=== PATIENT | female | born 1950 | race Caucasian/White ===

== ENCOUNTER 2018-03-16 18:22 | Inpatient (IN) | payer MEDICAID, MEDICARE ==
[~2018-03-16] VITALS: Ht 160 cm; Wt 83.7 kg
[2018-03-16 20:10] VITALS: BP 144/68
--- NOTE | 2018-03-16 20:10 | NUR ---
JOSEPH GABRIEL admitted to room 417-1, with an admitting diagnosis of PANCREATITIS, on 03/16/18 from [place] via , accompanied by STAFF.JOSEPH GABRIEL introduced to surroundings, call light, bed controls, phone, TV, temperature control, lights, meal times, smoking policy, visitor policy, side rail policy, bathrooms and showers. Patient Rights given to patient in the handbook. JOSEPH GABRIEL verbalizes understanding that [facility] is not responsible for the loss or damage to any personal effects or valuables that are kept in the patients posession during their hospitalization. PLANS OF CARE DISCUSSED WITH THE PT AND PT VERBALIZES UNDERSTANDING. JOSEPH GABRIEL verbalizes understanding of Interdisciplinary Patient Education. Patient and/or family were informed about the Rapid Response Team and its purpose.
--- OUTSIDE RECORDS SUMMARY | 2018-03-16 20:18 | XMS REPORT ---
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
--- OUTSIDE RECORDS SUMMARY | 2018-03-16 20:18 | XMS REPORT ---
Author Author FELIBERTO VEGA Organization eClinicalWorks Address Unknown Phone Unavailable Care Team Providers Care Customs Verifier Name Role Phone FELIBERTO VEGA CP Unavailable Allergies No Known Allergies Problems Problem Type Condition ICD-9 Code Onset Dates Condition Status Problem Depression 311 Active Problem Pure hypercholesterolemia 272.0 Active Problem HTN (hypertension) 401.9 Active Problem Sciatica 724.3 Active Problem Need for prophylactic vaccination and inoculation, Influenza V04.81 Active Problem Diabetes mellitus without mention of complication, type II or unspecified type, not stated as uncontrolled 250.00 Active Problem Insomnia, unspecified 780.52 Active Medications Medication Code System Code Instructions Start Date End Date Status Dosage Trazodone HCl [facility] [address]-83 50 MG Orally Once a day at Sep 29, 2014 1.5 tablets at bedtime as needed Results No Known Results Summary Purpose eClinicalWorks Submission
--- OUTSIDE RECORDS SUMMARY | 2018-03-16 20:18 | XMS REPORT ---
Author Author FELIBERTO VEGA [facility] eClinicalWorks Address Unknown Phone Unavailable Care Team Providers Care Online Health And Fitness Coach Name Role Phone FELIBERTO VEGA CP Unavailable Allergies, Adverse Reactions, Alerts Substance Reaction Event Type Codeine Sulfate vomiting Drug Allergy Problems Problem Type Condition Code Onset Dates Condition Status Assessment Essential hypertension I10 Active Problem Sciatica 724.3 Active Assessment DM w/o complication type II E11.9 Active Assessment Acute pain of left shoulder M25.512 Active Problem Sciatica, left M54.32 Active Problem Pure hypercholesterolemia E78.0 Active Problem Depressive disorder, not elsewhere classified F32.9 Active Problem Essential hypertension I10 Active Problem Depression 311 Active Problem DM w/o complication type II E11.9 Active Problem Insomnia, unspecified G47.00 Active Medications Medication Code System Code Instructions Start Date End Date Status Dosage Lancets [facility] 0 July 06, 2011 1 Lancet by Subdermal route 1 time per dayDON 99 Lisinopril-Hydrochlorothiazide [facility] [address]-44 20-25 MG Orally Once a day in am Feb 23, 2014 1 tablet Lisinopril [facility] [address]-86 20 MG Orally Once a day at hs. NEED APPT PRIOR TO FURTHER REFILLS Feb 23, 2014 take 1 tablet Diclofenac [facility] [address]-49 75 mg Orally 2 times a day Nov 03, 2013 Take 1 tablet Fish Oil [facility] [address]-23 500-1,000 mg May 18, 2011 by Oral route 1 time per day Advocate Insulin Pen [place] [facility] [address] 31G X 8 MM Once a day July as directed Estrace [facility] [address]-14 1 MG Orally Once a day Apr 07, 2014 .5 tablet metformin [facility] [address]-87 1,000 mg 2 times a day Mar 23, 2014 1- 1.5 tab 1.5 am 1 pm Trazodone HCl [facility] [address]-41 50 MG Orally Once a day at HS Sep 29, 2014 1.5 tablets at bedtime as needed Victoza [facility] [address]-52 18 MG/3ML Subcutaneous Once a day July 08, 2014 1.8 mg [place] [facility] [address]-44 31G X 6 MM Once a day May 20, 2015 as directed Lexapro [facility] [address]-67 20 MG Orally Once a day Feb 23, 2014 take 0.5 tablet Vitamin D2 [facility] [address]72 1,000 unit June 23, 2012 1 Capsule by Oral route 1 time per day Simvastatin [facility] 59857090144 40 MG Orally Once a day at hs take 1 tablet Procedures Procedure Coding System Code Date Office Visit, Est Pt., Level 3 CPT-4 89495 Sep 12, 2015 GLYCATED HEMOGLOBIN TEST CPT-4 31904 Sep 12, 2015 [facility] VISIT ESTABLISHED PATIENT CPT-4 G0467 Sep 12, 2015 Vital Signs Date/Time: Sep 12, 2015 Cardiac Monitoring Heart Rate 70 bpm Weight 208.0 lbs Height 64 in BMI 35.70 Index Blood Pressure Diastolic 70 mmHg Blood Pressure Systolic 122 mmHg Results No Known Results Summary Purpose eClinicalWorks Submission
--- OUTSIDE RECORDS SUMMARY | 2018-03-16 20:18 | XMS REPORT ---
Author Author FELIBERTO VEGA Organization eClinicalWorks Address Unknown Phone Unavailable Care Team Providers Care Coil Connector Name Role Phone FELIBERTO VEGA CP Unavailable [...] Active Problem HTN (hypertension) 401.9 Active Medications No Known Medications Results No Known Results Summary Purpose eClinicalWorks Submission
--- OUTSIDE RECORDS SUMMARY | 2018-03-16 20:19 | XMS REPORT ---
Author Author FELIBERTO VEGA Organization eClinicalWorks Address Unknown Phone Unavailable Care Team Providers Care Commercial Producer Name Role Phone FELIBERTO VEGA CP Unavailable [...] Instructions Start Date End Date Status Dosage Simvastatin [facility] [address]-60 40 MG Orally Once a day at hs August 13, 2013 take 1 tablet Results No Known Results Summary Purpose eClinicalWorks Submission
--- OUTSIDE RECORDS SUMMARY | 2018-03-16 20:19 | XMS REPORT ---
Author Author FELIBERTO VEGA Organization eClinicalWorks Address Unknown Phone Unavailable Care Team Providers Care Pump Operator Byproducts Name Role Phone FELIBERTO VEGA CP Unavailable Allergies No Known Allergies Problems Problem Type Condition Code Onset Dates Condition Status Problem Sciatica 724.3 Active Problem Diabetes mellitus without mention of complication, type II or unspecified type, not stated as uncontrolled 250.00 Active Problem Insomnia, unspecified 780.52 Active Assessment Essential hypertension I10 Active Problem Need for prophylactic vaccination and inoculation, Influenza V04.81 Active Problem DM w/o complication type II E11.9 Active Problem Insomnia, unspecified G47.00 Active Problem Pure hypercholesterolemia E78.0 Active Problem Depression 311 Active Problem Pure hypercholesterolemia 272.0 Active Problem Essential hypertension I10 Active Problem HTN (hypertension) 401.9 Active Medications Medication Code System Code Instructions Start Date End Date Status Dosage Lisinopril [facility] [address]-78 20 MG Orally Once a day at hs. NEED APPT PRIOR TO FURTHER REFILLS Feb 23, 2014 take 1 tablet Results No Known Results Summary Purpose eClinicalWorks Submission
--- OUTSIDE RECORDS SUMMARY | 2018-03-16 20:19 | XMS REPORT ---
Author Author FELIBERTO VEGA [facility] eClinicalWorks Address Unknown Phone Unavailable Care Team Providers Care Oncology Coordinator Name Role Phone FELIBERTO VEGA CP Unavailable Allergies, Adverse Reactions, Alerts Substance Reaction Event Type Codeine Sulfate vomiting Drug Allergy Problems Problem Type Condition Code Onset Dates Condition Status Assessment Essential hypertension I10 Active Problem Sciatica 724.3 Active Assessment DM w/o complication type II E11.9 Active Assessment Depressive disorder, not elsewhere classified F32.9 Active Problem Sciatica, left M54.32 Active Problem Pure hypercholesterolemia E78.0 Active Problem Depressive disorder, not elsewhere classified F32.9 Active Problem Essential hypertension I10 Active Problem Depression 311 Active Problem DM w/o complication type II E11.9 Active Problem Insomnia, unspecified G47.00 Active Medications Medication Code System Code Instructions Start Date End Date Status Dosage Estrace [facility] [address]-95 1 MG Orally Once a day Apr 07, 2014 .5 tablet Trazodone HCl [facility] [address]-67 50 MG Orally Once a day at HS Sep 29, 2014 1.5 tablets at bedtime as needed Lancets [facility] 0 July 06, 2011 1 Lancet by Subdermal route 1 time per dayDON 99 Lexapro [facility] [address]-87 20 MG Orally Once a day Feb 23, 2014 take 0.5 tablet Diclofenac [facility] [address]-96 75 mg Orally 2 times a day Nov 03, 2013 Take 1 tablet Lisinopril-Hydrochlorothiazide [facility] [address]-12 20-25 MG Orally Once a day in am Feb 23, 2014 1 tablet Simvastatin [facility] [address]-78 40 MG Orally Once a day at hs August 13, 2013 take 1 tablet Vitamin D2 [facility] [address]082 1,000 unit June 23, 2012 1 Capsule by Oral route 1 time per day metformin [facility] [address]-57 1,000 mg 2 times a day Mar 23, 2014 1- 1.5 tab 1.5 am 1 pm Fish Oil [facility] [address]-84 500-1,000 mg May 18, 2011 by Oral route 1 time per day Lisinopril [facility] [address]-71 20 MG Orally Once a day at hs. NEED APPT PRIOR TO FURTHER REFILLS Feb 23, 2014 take 1 tablet Advocate Insulin Pen [place] [facility] [address] 31G X 8 MM Once a day July as directed [place] [facility] [address]-99 31G X 6 MM Once a day May 20, 2015 as directed Victoza [facility] [address]-45 18 MG/3ML Subcutaneous Once a day July 08, 2014 1.8 mg Procedures Procedure Coding System Code Date Office Visit, Est Pt., Level 3 CPT-4 80674 June 09, 2015 GLYCATED HEMOGLOBIN TEST CPT-4 02350 June 09, 2015 [facility] VISIT ESTABLISHED PATIENT CPT-4 G0467 June 09, 2015 Vital Signs Date/Time: June 09, 2015 Temperature 98.2 F Weight 206 lbs Height 64 in BMI 35.36 Index Blood Pressure Diastolic 70 mmHg Blood Pressure Systolic 120 mmHg Cardiac Monitoring Heart Rate 76 bpm Results Name Result Date Reference Range Unit Abnormality Flag A1C (IN HOUSE) ----A1C IN HOUSE 6.3 [id number] 4.3 - 5.6 % ----Previous A1c 6.0 20150609 ----Lot [id number] ----Exp date [id number] Summary Purpose eClinicalWorks Submission
--- OUTSIDE RECORDS SUMMARY | 2018-03-16 20:19 | XMS REPORT ---
Author Author FELIBERTO VEGA Organization eClinicalWorks Address Unknown Phone Unavailable Care Team Providers Care Engravings Polisher Name Role Phone FELIBERTO VEGA CP Unavailable [...] Instructions Start Date End Date Status Dosage Lexapro [facility] [address]-31 20 MG Orally Once a day Feb 23, 2014 take 0.5 tablet Results No Known Results Summary Purpose eClinicalWorks Submission
--- OUTSIDE RECORDS SUMMARY | 2018-03-16 20:19 | XMS REPORT ---
Author Author FELIBERTO VEGA Organization eClinicalWorks Address Unknown Phone Unavailable Care Team Providers Care Mobility Architect Manager Name Role Phone FELIBERTO VEGA CP Unavailable [...] Date End Date Status Dosage Trazodone HCl [facility] [address]-81 50 MG Orally Once a day at HS Sep 29, 2014 1.5 tablets at bedtime as needed Estrace [facility] [address]-75 1 MG Orally Once a day Apr 07, 2014 .5 tablet Results No Known Results Summary Purpose eClinicalWorks Submission
--- OUTSIDE RECORDS SUMMARY | 2018-03-16 20:19 | XMS REPORT ---
Author Author FELIBERTO VEGA [facility] Address [address] [place] [address] Care Team Providers Care Woven Paper Hat Mender Name Role Phone FELIBERTO VEGA Unavailable PROBLEMS Type Condition ICD9-CM Code CAM53-NZ Code Onset Dates Condition Status SNOMED Code Problem Depression 311 Active 20203010 Problem Sciatica 724.3 Active 67863691 Problem Depressive disorder, not elsewhere classified F32.9 Active 20265297 Problem Sciatica, left M54.32 Active 10789223 Problem Insomnia, unspecified G47.00 Active 995382264 Problem Essential hypertension I10 Active 10768440 Problem Pure hypercholesterolemia E78.0 Active 650241888 Problem DM w/o complication type II E11.9 Active 92018773 ALLERGIES Unknown Allergies SOCIAL HISTORY No smoking Hx information available PLAN OF CARE VITAL SIGNS MEDICATIONS Medication Instructions Dosage Frequency Start Date End Date Duration Status Lisinopril 20 mg Orally Once a day at hs. take 1 tablet Feb, Active RESULTS No Results PROCEDURES No Known procedures IMMUNIZATIONS No Known Immunizations
--- OUTSIDE RECORDS SUMMARY | 2018-03-16 20:19 | XMS REPORT ---
Author Author FELIBERTO VEGA Organization eClinicalWorks Address Unknown Phone Unavailable Care Team Providers Care Therapist Asst Name Role Phone FELIBERTO VEGA CP Unavailable Allergies No Known Allergies Problems Problem Type Condition Code Onset Dates Condition Status Problem Sciatica 724.3 Active Problem Sciatica, left M54.32 Active Problem Pure hypercholesterolemia E78.0 Active Problem Depressive disorder, not elsewhere classified F32.9 Active Problem Essential hypertension I10 Active Problem Depression 311 Active Problem DM w/o complication type II E11.9 Active Problem Insomnia, unspecified G47.00 Active Medications No Known Medications Results No Known Results Summary Purpose eClinicalWorks Submission
--- OUTSIDE RECORDS SUMMARY | 2018-03-16 20:19 | XMS REPORT ---
Author Author FELIBERTO VEGA [facility] eClinicalWorks Address Unknown Phone Unavailable Care Team Providers Care Steamfitter Name Role Phone FELIBERTO VEGA CP Unavailable Allergies, Adverse Reactions, Alerts Substance Reaction Event Type Codeine Sulfate vomiting Drug Allergy Problems Problem Type Condition Code Onset Dates Condition Status Assessment Essential hypertension I10 Active Problem Sciatica 724.3 Active Assessment DM w/o complication type II E11.9 Active Assessment Sciatica, left M54.32 Active Assessment Depressive disorder, not elsewhere classified F32.9 Active Problem Sciatica, left M54.32 Active Problem Pure hypercholesterolemia E78.0 Active Problem Depressive disorder, not elsewhere classified F32.9 Active Problem Essential hypertension I10 Active Problem Depression 311 Active Problem DM w/o complication type II E11.9 Active Problem Insomnia, unspecified G47.00 Active Medications Medication Code System Code Instructions Start Date End Date Status Dosage Lisinopril-Hydrochlorothiazide [facility] [address]-65 20-25 MG Orally Once a day in am Feb 23, 2014 1 tablet Victoza [facility] [address]-12 18 MG/3ML Subcutaneous Once a day July 08, 2014 1.8 mg Lexapro [facility] [address]-47 20 MG Orally Once a day Feb 23, 2014 take 0.5 tablet Diclofenac [facility] [address]-58 75 mg Orally 2 times a day Nov 03, 2013 Take 1 tablet Lisinopril [facility] [address]-20 20 MG Orally Once a day at hs. NEED APPT PRIOR TO FURTHER REFILLS Feb 23, 2014 take 1 tablet Estrace [facility] [address]-73 1 MG Orally Once a day Apr 07, 2014 .5 tablet metformin [facility] [address]-69 1,000 mg 2 times a day Mar 23, 2014 1- 1.5 tab 1.5 am 1 pm Simvastatin [facility] [address]-47 40 MG Orally Once a day at hs August 13, 2013 take 1 tablet Lancets [facility] 0 July 06, 2011 1 Lancet by Subdermal route 1 time per dayDON 99 Vitamin D2 [facility] [address]10 1,000 unit June 23, 2012 1 Capsule by Oral route 1 time per day Trazodone HCl [facility] [address]-36 50 MG Orally Once a day at HS Sep 29, 2014 1.5 tablets at bedtime as needed Fish Oil [facility] [address]-69 500-1,000 mg May 18, 2011 by Oral route 1 time per day Advocate Insulin Pen [place] [facility] [address] 31G X 8 MM Once a day July as directed Procedures Procedure Coding System Code Date Office Visit, Est Pt., Level 3 CPT-4 95042 Mar 10, 2015 GLYCATED HEMOGLOBIN TEST CPT-4 31054 Mar 10, 2015 [facility] VISIT ESTABLISHED PATIENT CPT-4 G0467 Mar 10, 2015 Vital Signs Date/Time: Mar 10, 2015 Temperature 97.8 F Weight 200.8 lbs Height 64 in BMI 34.46 Index Blood Pressure Diastolic 80 mmHg Blood Pressure Systolic 130 mmHg Cardiac Monitoring Heart Rate 75 bpm Results Name Result Date Reference Range Unit Abnormality Flag A1C (IN HOUSE) ----A1C IN HOUSE 6.0 [id number] 4.3 - 5.6 % ----Previous A1c 7.3 [id number] ----Lot [id number] ----Exp date [id number] Summary Purpose eClinicalWorks Submission
--- OUTSIDE RECORDS SUMMARY | 2018-03-16 20:19 | XMS REPORT ---
Author Author FELIBERTO VEGA [facility] eClinicalWorks Address Unknown Phone Unavailable Care Team Providers Care Vice President Media Relations Name Role Phone FELIBERTO VEGA CP Unavailable Allergies, Adverse Reactions, Alerts Substance Reaction Event Type Codeine Sulfate vomiting Drug Allergy Problems Problem Type Condition Code Onset Dates Condition Status Problem Sciatica 724.3 Active Problem Diabetes mellitus without mention of complication, type II or unspecified type, not stated as uncontrolled 250.00 Active Problem Insomnia, unspecified 780.52 Active Problem DM w/o complication type II E11.9 Active Problem Insomnia, unspecified G47.00 Active Problem Pure hypercholesterolemia E78.0 Active Problem Depression 311 Active Problem Pure hypercholesterolemia 272.0 Active Problem Essential hypertension I10 Active Problem HTN (hypertension) 401.9 Active Assessment DM w/o complication type II E11.9 Active Assessment Encounter for immunization Z23 Active Assessment Essential hypertension I10 Active Assessment Pure hypercholesterolemia E78.0 Active Assessment Insomnia, unspecified G47.00 Active Problem Need for prophylactic vaccination and inoculation, Influenza V04.81 Active Medications Medication Code System Code Instructions Start Date End Date Status Dosage Fish Oil [facility] [address]-20 500-1,000 mg May 18, 2011 by Oral route 1 time per day Lexapro [facility] [address]-67 20 MG Orally Once a day Feb 23, 2014 take 0.5 tablet Trazodone HCl [facility] [address]-42 50 MG Orally Once a day at HS Sep 29, 2014 1.5 tablets at bedtime as needed Diclofenac [facility] [address]-11 75 mg Orally 2 times a day Nov 03, 2013 Take 1 tablet Lancets [facility] 0 July 06, 2011 1 Lancet by Subdermal route 1 time per dayDON 99 Lisinopril-Hydrochlorothiazide [facility] [address]-86 20-25 MG Once a day in am Feb 23, 2014 take 1 tablet Estrace [facility] [address]-25 1 MG Orally Once a day Apr 07, 2014 .5 tablet metformin [facility] [address]-71 1,000 mg 2 times a day Mar 23, 2014 1- 1.5 tab 1.5 am 1 pm Simvastatin [facility] [address]-98 40 MG Orally Once a day at hs August 13, 2013 take 1 tablet Vitamin D2 [facility] [address]357-[address]01 1,000 unit June 23, 2012 1 Capsule by Oral route 1 time per day Lisinopril [facility] [address]-20 20 MG Orally Once a day at hs Feb 23, 2014 take 1 tablet Advocate Insulin Pen [place] [facility] [address] 31G X 8 MM Once a day July as directed Victoza [facility] [address]-11 18 MG/3ML Subcutaneous Once a day July 08, 2014 1.8 mg Procedures Procedure Coding System Code Date [facility] VISIT ESTABLISHED PATIENT CPT-4 G0467 Nov 11, 2014 Office Visit, Est Pt., Level 3 CPT-4 69833 Nov 11, 2014 ADMN FLU VAC NO FEE SCHED SAME DAY CPT-4 G0008 Nov 11, 2014 SINGLE IMMUNIZATION ADMIN CPT-4 66255 Nov 11, 2014 FLUARIX QUAD (3 & UP)-GSK-2014 CPT-4 39353 Nov 11, 2014 Vital Signs Date/Time: Nov 11, 2014 Temperature 98 F Weight 203 lbs Height 64 in BMI 34.84 Index Blood Pressure Diastolic 78 mmHg Blood Pressure Systolic 126 mmHg Cardiac Monitoring Heart Rate 70 bpm Results No Known Results Immunizations Vaccine Administration Date FLUARIX QUAD (3 & UP)-GSK-2014Nov 11, 2014 Summary Purpose eClinicalWorks Submission
--- OUTSIDE RECORDS SUMMARY | 2018-03-16 20:19 | XMS REPORT ---
Author Author FELIBERTO VEGA Organization eClinicalWorks Address Unknown Phone Unavailable Care Team Providers Care Morning News Anchor Name Role Phone FELIBERTO VEGA CP Unavailable [...] Start Date End Date Status Dosage Lisinopril-Hydrochlorothiazide [facility] 85875493119 20-25 MG Orally Once a day in am 1 tablet Results No Known Results Summary Purpose eClinicalWorks Submission
--- OUTSIDE RECORDS SUMMARY | 2018-03-16 20:20 | XMS REPORT | Continuity of Care Document ---
Author Author [facility] Address Unknown Phone Unavailable Allergies There is no data. Medications There is no data. Problems Date Dx Coded Attending Type Code Diagnosis Diagnosed By 06/07/2009 FELIBERTO VEGA APRN 278.02 OVERWEIGHT 06/07/2009 FELIBERTO VEGA APRN 300.00 ANXIETY UNSPEC 06/07/2009 FELIBERTO VEGA APRN 401.1 HYPERTENSION, BENIGN ESSENTIAL 06/07/2009 278.02 OVERWEIGHT 06/07/2009 300.00 ANXIETY UNSPEC 06/07/2009 401.1 HYPERTENSION, BENIGN ESSENTIAL 06/07/2009 FELIBERTO VEGA APRN 278.02 OVERWEIGHT 06/07/2009 FELIBERTO VEGA APRN 300.00 ANXIETY UNSPEC 06/07/2009 FELIBERTO VEGA APRN 401.1 HYPERTENSION, BENIGN ESSENTIAL 06/07/2009 278.02 OVERWEIGHT 06/07/2009 300.00 ANXIETY UNSPEC 06/07/2009 401.1 HYPERTENSION, BENIGN ESSENTIAL 06/07/2009 278.02 OVERWEIGHT 06/07/2009 300.00 ANXIETY UNSPEC 06/07/2009 401.1 HYPERTENSION, BENIGN ESSENTIAL 06/07/2009 278.02 OVERWEIGHT 06/07/2009 300.00 ANXIETY UNSPEC 06/07/2009 401.1 HYPERTENSION, BENIGN ESSENTIAL 06/07/2009 278.02 OVERWEIGHT 06/07/2009 300.00 ANXIETY UNSPEC 06/07/2009 401.1 HYPERTENSION, BENIGN ESSENTIAL 06/07/2009 278.02 OVERWEIGHT 06/07/2009 300.00 ANXIETY UNSPEC 06/07/2009 401.1 HYPERTENSION, BENIGN ESSENTIAL 06/07/2009 OWEN DO ANA LAURA K 278.02 OVERWEIGHT 06/07/2009 LEXIE MERINO ANA LAURA K 300.00 ANXIETY UNSPEC 06/07/2009 OWEN DO ANA LAURA K 401.1 HYPERTENSION, BENIGN ESSENTIAL 06/07/2009 OWEN DO ANA LAURA K 278.02 OVERWEIGHT 06/07/2009 LEXIE MERINO ANA LAURA K 300.00 ANXIETY UNSPEC 06/07/2009 OWEN DO, ANA LAURA K 401.1 HYPERTENSION, BENIGN ESSENTIAL 06/07/2009 VEGA FIELD SERVICE SPECIALIST, FELIBERTO R 278.02 OVERWEIGHT 06/07/2009 VEGA FIELD SERVICE SPECIALIST, FELIBERTO R 300.00 ANXIETY UNSPEC 06/07/2009 VEGA FIELD SERVICE SPECIALIST, FELIBERTO R 401.1 HYPERTENSION, BENIGN ESSENTIAL 06/07/2009 OWEN DO, ANA LAURA K 278.02 OVERWEIGHT 06/07/2009 OWEN DO, ANA LAURA K 300.00 ANXIETY UNSPEC 06/07/2009 OWEN DO, ANA LAURA K 401.1 HYPERTENSION, BENIGN ESSENTIAL 06/07/2009 VEGA FIELD SERVICE SPECIALIST, FELIBERTO R 278.02 OVERWEIGHT 06/07/2009 VEGA FIELD SERVICE SPECIALIST, FELIBERTO R 300.00 ANXIETY UNSPEC 06/07/2009 VEGA FIELD SERVICE SPECIALIST, FELIBERTO R 401.1 HYPERTENSION, BENIGN ESSENTIAL 06/07/2009 VEGA FIELD SERVICE SPECIALIST, FELIBERTO R 278.02 OVERWEIGHT 06/07/2009 VEGA FIELD SERVICE SPECIALIST, FELIBERTO R 300.00 ANXIETY UNSPEC 06/07/2009 VEGA FIELD SERVICE SPECIALIST, FELIBERTO R 401.1 HYPERTENSION, BENIGN ESSENTIAL 06/07/2009 OWEN DO, ANA LAURA K 278.02 OVERWEIGHT 06/07/2009 OWEN DO, ANA LAURA K 300.00 ANXIETY UNSPEC 06/07/2009 OWEN DO, ANA LAURA K 401.1 HYPERTENSION, BENIGN ESSENTIAL 06/07/2009 OWEN DO, ANA LAURA K 278.02 OVERWEIGHT 06/07/2009 OWEN DO, ANA LAURA K 300.00 ANXIETY UNSPEC 06/07/2009 OWEN DO, ANA LAURA K 401.1 HYPERTENSION, BENIGN ESSENTIAL 06/07/2009 VEGA FIELD SERVICE SPECIALIST, FELIBERTO R 278.02 OVERWEIGHT 06/07/2009 VEGA FIELD SERVICE SPECIALIST, FELIBERTO R 300.00 ANXIETY UNSPEC 06/07/2009 VEGA FIELD SERVICE SPECIALIST, FELIBERTO R 401.1 HYPERTENSION, BENIGN ESSENTIAL 06/07/2009 OWEN DO, ANA LAURA K 278.02 OVERWEIGHT 06/07/2009 OWEN DO, ANA LAURA K 300.00 ANXIETY UNSPEC 06/07/2009 OWEN DO, ANA LAURA K 401.1 HYPERTENSION, BENIGN ESSENTIAL 06/07/2009 VEGA FIELD SERVICE SPECIALIST, FELIBERTO R 278.02 OVERWEIGHT 06/07/2009 VEGA FIELD SERVICE SPECIALIST, FELIBERTO R 300.00 ANXIETY UNSPEC 06/07/2009 VEGA FIELD SERVICE SPECIALIST, FELIBERTO R 401.1 HYPERTENSION, BENIGN ESSENTIAL 06/07/2009 OWEN DO, ANA LAURA K 278.02 OVERWEIGHT 06/07/2009 OWEN DO, ANA LAURA K 300.00 ANXIETY UNSPEC 06/07/2009 OWEN DO, ANA LAURA K 401.1 HYPERTENSION, BENIGN ESSENTIAL 06/07/2009 OWEN DO, ANA LAURA K 278.02 OVERWEIGHT 06/07/2009 OWEN DO, ANA LAURA K 300.00 ANXIETY UNSPEC 06/07/2009 OWEN DO, ANA LAURA K 401.1 HYPERTENSION, BENIGN ESSENTIAL 06/21/2009 VEGA FELIBERTO STEWART 401.9 UNSPECIFIED ESSENTIAL HYPERTENSION 06/21/2009 VEGA FIELD SERVICE SPECIALISTFELIBERTO Phelps 521.00 DENTAL CARIES, UNSPECIFIED 06/21/2009 401.9 UNSPECIFIED ESSENTIAL HYPERTENSION 06/21/2009 521.00 DENTAL CARIES , UNSPECIFIED 06/21/2009 VEGA FIELD SERVICE SPECIALISTFELIBERTO Phelps 401.9 UNSPECIFIED ESSENTIAL HYPERTENSION 06/21/2009 VEGA FIELD SERVICE SPECIALISTFELIBERTO Phelps 521.00 DENTAL CARIES, UNSPECIFIED 06/21/2009 401.9 UNSPECIFIED ESSENTIAL HYPERTENSION 06/21/2009 521.00 DENTAL CARIES , UNSPECIFIED 06/21/2009 401.9 UNSPECIFIED ESSENTIAL HYPERTENSION 06/21/2009 521.00 DENTAL CARIES , UNSPECIFIED 06/21/2009 401.9 UNSPECIFIED ESSENTIAL HYPERTENSION 06/21/2009 521.00 DENTAL CARIES , UNSPECIFIED 06/21/2009 401.9 UNSPECIFIED ESSENTIAL HYPERTENSION 06/21/2009 521.00 DENTAL CARIES , UNSPECIFIED 06/21/2009 401.9 UNSPECIFIED ESSENTIAL HYPERTENSION 06/21/2009 521.00 DENTAL CARIES , UNSPECIFIED 06/21/2009 OWEN DO, ANA LAURA K 401.9 UNSPECIFIED ESSENTIAL HYPERTENSION 06/21/2009 OWEN DO, ANA LAURA K 521.00 DENTAL CARIES, UNSPECIFIED 06/21/2009 OWEN DO, ANA LAURA K 401.9 UNSPECIFIED ESSENTIAL HYPERTENSION 06/21/2009 OWEN DO, ANA LAURA K 521.00 DENTAL CARIES, UNSPECIFIED 06/21/2009 VEGA FELIBERTO STEWART 401.9 UNSPECIFIED ESSENTIAL HYPERTENSION 06/21/2009 VEGA FIELD SERVICE SPECIALISTFELIBERTO Phelps 521.00 DENTAL CARIES, UNSPECIFIED 06/21/2009 OWEN DO, ANA LAURA K 401.9 UNSPECIFIED ESSENTIAL HYPERTENSION 06/21/2009 OWEN DO, ANA LAURA K 521.00 DENTAL CARIES, UNSPECIFIED 06/21/2009 VEGA FELIBERTO STEWART 401.9 UNSPECIFIED ESSENTIAL HYPERTENSION 06/21/2009 VEGA FIELD SERVICE SPECIALIST, FELIBERTO R 521.00 DENTAL CARIES, UNSPECIFIED 06/21/2009 VEGA FIELD SERVICE SPECIALIST, FELIBERTO R 401.9 UNSPECIFIED ESSENTIAL HYPERTENSION 06/21/2009 VEGA FIELD SERVICE SPECIALIST, FELIBERTO R 521.00 DENTAL CARIES, UNSPECIFIED 06/21/2009 OWEN DO, ANA LAURA K 401.9 UNSPECIFIED ESSENTIAL HYPERTENSION 06/21/2009 OWEN DO, ANA LAURA K 521.00 DENTAL CARIES, UNSPECIFIED 06/21/2009 OWEN DO, ANA LAURA K 401.9 UNSPECIFIED ESSENTIAL HYPERTENSION 06/21/2009 OWEN DO, ANA LAURA K 521.00 DENTAL CARIES, UNSPECIFIED 06/21/2009 VEGA FIELD SERVICE SPECIALIST, FELIBERTO R 401.9 UNSPECIFIED ESSENTIAL HYPERTENSION 06/21/2009 VEGA FIELD SERVICE SPECIALIST, FELIBERTO R 521.00 DENTAL CARIES, UNSPECIFIED 06/21/2009 OWEN DO, ANA LAURA K 401.9 UNSPECIFIED ESSENTIAL HYPERTENSION 06/21/2009 OWEN DO, ANA LAURA K 521.00 DENTAL CARIES, UNSPECIFIED 06/21/2009 VEGA FIELD SERVICE SPECIALIST, FELIBERTO R 401.9 UNSPECIFIED ESSENTIAL HYPERTENSION 06/21/2009 VEGA FIELD SERVICE SPECIALIST, FELIBERTO R 521.00 DENTAL CARIES, UNSPECIFIED 06/21/2009 OWEN DO, ANA LAURA K 401.9 UNSPECIFIED ESSENTIAL HYPERTENSION 06/21/2009 OWEN DO, ANA LAURA K 521.00 DENTAL CARIES, UNSPECIFIED 06/21/2009 OWEN DO, ANA LAURA K 401.9 UNSPECIFIED ESSENTIAL HYPERTENSION 06/21/2009 OWEN DO, ANA LAURA K 521.00 DENTAL CARIES, UNSPECIFIED 07/05/2009 VEGA FELIBERTO STEWART 242.90 HYPERTHYROIDISM NOS 07/05/2009 242.90 HYPERTHYROIDISM NOS 07/05/2009 VEGA FIELD SERVICE SPECIALISTFELIBERTO Phelps 242.90 HYPERTHYROIDISM NOS 07/05/2009 242.90 HYPERTHYROIDISM NOS 07/05/2009 242.90 HYPERTHYROIDISM NOS 07/05/2009 242.90 HYPERTHYROIDISM NOS 07/05/2009 242.90 HYPERTHYROIDISM NOS 07/05/2009 242.90 HYPERTHYROIDISM NOS 07/05/2009 OWEN DO, ANA LAURA K 242.90 HYPERTHYROIDISM NOS 07/05/2009 OWEN DO, ANA LAURA K 242.90 HYPERTHYROIDISM NOS 07/05/2009 VEGA FELIBERTO STEWART 242.90 HYPERTHYROIDISM NOS 07/05/2009 OWEN DO, ANA LAURA K 242.90 HYPERTHYROIDISM NOS 07/05/2009 FELIBERTO VEGA APRN 242.90 HYPERTHYROIDISM NOS 07/05/2009 FELIBERTO VEGA APRN 242.90 HYPERTHYROIDISM NOS 07/05/2009 OWEN DO, ANA LAURA K 242.90 HYPERTHYROIDISM NOS 07/05/2009 OWEN DO, ANA LAURA K 242.90 HYPERTHYROIDISM NOS 07/05/2009 FELIBERTO VEGA APRN R 242.90 HYPERTHYROIDISM NOS 07/05/2009 OWEN DO, ANA LAURA K 242.90 HYPERTHYROIDISM NOS 07/05/2009 FELIBERTO VEGA APRN R 242.90 HYPERTHYROIDISM NOS 07/05/2009 OWEN DO, ANA LAURA K 242.90 HYPERTHYROIDISM NOS 07/05/2009 OWEN DO, ANA LAURA K 242.90 HYPERTHYROIDISM NOS 09/23/2009 FELIBERTO VEGA APRN 307.42 PERSISTENT DISORDER OF INITIATING OR MAINTAINING SLEEP 09/23/2009 FELIBERTO VEGA APRN V72.31 FAIRING MAN EXAM, ROUTINE 09/23/2009 307.42 PERSISTENT DISORDER OF INITIATING OR MAINTAINING SLEEP 09/23/2009 V72. FAIRING MAN EXAM, ROUTINE 09/23/2009 FELIBERTO VEGA APRN 307.42 PERSISTENT DISORDER OF INITIATING OR MAINTAINING SLEEP 09/23/2009 FELIBERTO VEGA APRN V72.31 FAIRING MAN EXAM, ROUTINE 09/23/2009 307.42 PERSISTENT DISORDER OF INITIATING OR MAINTAINING SLEEP 09/23/2009 V72.31 FAIRING MAN EXAM, ROUTINE 09/23/2009 307.42 PERSISTENT DISORDER OF INITIATING OR MAINTAINING SLEEP 09/23/2009 V72. FAIRING MAN EXAM, ROUTINE 09/23/2009 307.42 PERSISTENT DISORDER OF INITIATING OR MAINTAINING SLEEP 09/23/2009 V72.31 FAIRING MAN EXAM, ROUTINE 09/23/2009 307.42 PERSISTENT DISORDER OF INITIATING OR MAINTAINING SLEEP 09/23/2009 V72.31 FAIRING MAN EXAM, ROUTINE 09/23/2009 307.42 PERSISTENT DISORDER OF INITIATING OR MAINTAINING SLEEP 09/23/2009 V72.31 FAIRING MAN EXAM, ROUTINE 09/23/2009 ANA LAURA OWEN DO K 307.42 PERSISTENT DISORDER OF INITIATING OR MAINTAINING SLEEP 09/23/2009 OWEN DONKECHIA K V72.31 FAIRING MAN EXAM, ROUTINE 09/23/2009 OWEN DONKECHIA K 307.42 PERSISTENT DISORDER OF INITIATING OR MAINTAINING SLEEP 09/23/2009 OWEN DO ANA LAURA K V72.31 FAIRING MAN EXAM, ROUTINE 09/23/2009 FELIBERTO VEGA APRN 307.42 PERSISTENT DISORDER OF INITIATING OR MAINTAINING SLEEP 09/23/2009 VEGA FELIBERTO STEWART V72.31 FAIRING MAN EXAM, ROUTINE 09/23/2009 ANA LAURA OWEN DO 307.42 PERSISTENT DISORDER OF INITIATING OR MAINTAINING SLEEP 09/23/2009 NKECHI OWEN DOA K V72.31 FAIRING MAN EXAM, ROUTINE 09/23/2009 VEGA FELIBERTO STEWART 307.42 PERSISTENT DISORDER OF INITIATING OR MAINTAINING SLEEP 09/23/2009 VEGA FIELD SERVICE SPECIALISTFELIBERTO Phelps V72.31 FAIRING MAN EXAM, ROUTINE 09/23/2009 VEGA FIELD SERVICE SPECIALISTFELIBERTO Phelps 307.42 PERSISTENT DISORDER OF INITIATING OR MAINTAINING SLEEP 09/23/2009 VEGA FIELD SERVICE SPECIALISTFELIBERTO Phelps V72.31 FAIRING MAN EXAM, ROUTINE 09/23/2009 ANA LAURA OWEN DO K 307.42 PERSISTENT DISORDER OF INITIATING OR MAINTAINING SLEEP 09/23/2009 NKECHI OWEN DOA K V72.31 FAIRING MAN EXAM, ROUTINE 09/23/2009 ANA LAURA OWEN DO K 307.42 PERSISTENT DISORDER OF INITIATING OR MAINTAINING SLEEP 09/23/2009 NKECHI OWEN DOA K V72.31 FAIRING MAN EXAM, ROUTINE 09/23/2009 VEGA FIELD SERVICE SPECIALISTFELIBERTO Phelps 307.42 PERSISTENT DISORDER OF INITIATING OR MAINTAINING SLEEP 09/23/2009 VEGA FELIBERTO STEWART V72.31 FAIRING MAN EXAM, ROUTINE 09/23/2009 NKECHI OWEN DOA K 307.42 PERSISTENT DISORDER OF INITIATING OR MAINTAINING SLEEP 09/23/2009 NKECHI OWEN DOA K V72.31 FAIRING MAN EXAM, ROUTINE 09/23/2009 VEGA FELIBERTO STEWART 307.42 PERSISTENT DISORDER OF INITIATING OR MAINTAINING SLEEP 09/23/2009 VEGA FELIBERTO STEWART V72.31 FAIRING MAN EXAM, ROUTINE 09/23/2009 ANA LAURA OWEN DO K 307.42 PERSISTENT DISORDER OF INITIATING OR MAINTAINING SLEEP 09/23/2009 OWEN DO ANA LAURA K V72.31 FAIRING MAN EXAM, ROUTINE 09/23/2009 OWEN DO ANA LAURA K 307.42 PERSISTENT DISORDER OF INITIATING OR MAINTAINING SLEEP 09/23/2009 OWEN DO ANA LAURA K V72.31 FAIRING MAN EXAM, ROUTINE 11/10/2009 FELIBERTO VEGA APRN 465.9 ACUTE UPPER RESPIRATORY INFECTIONS OF UNSPECIFIED SITE 11/10/2009 465.9 ACUTE UPPER RESPIRATORY INFECTIONS OF UNSPECIFIED SITE 11/10/2009 VEGA FIELD SERVICE SPECIALIST, FELIBERTO R 465.9 ACUTE UPPER RESPIRATORY INFECTIONS OF UNSPECIFIED SITE 11/10/2009 465.9 ACUTE UPPER RESPIRATORY INFECTIONS OF UNSPECIFIED SITE 11/10/2009 465.9 ACUTE UPPER RESPIRATORY INFECTIONS OF UNSPECIFIED SITE 11/10/2009 465.9 ACUTE UPPER RESPIRATORY INFECTIONS OF UNSPECIFIED SITE 11/10/2009 465.9 ACUTE UPPER RESPIRATORY INFECTIONS OF UNSPECIFIED SITE 11/10/2009 465.9 ACUTE UPPER RESPIRATORY INFECTIONS OF UNSPECIFIED SITE 11/10/2009 OWEN DONKECHIA K 465.9 ACUTE UPPER RESPIRATORY INFECTIONS OF UNSPECIFIED SITE 11/10/2009 OWEN DO, ANA LAURA K 465.9 ACUTE UPPER RESPIRATORY INFECTIONS OF UNSPECIFIED SITE 11/10/2009 VEGA FELIBERTO STEWART R 465.9 ACUTE UPPER RESPIRATORY INFECTIONS OF UNSPECIFIED SITE 11/10/2009 NKECHI OWEN DOA K 465.9 ACUTE UPPER RESPIRATORY INFECTIONS OF UNSPECIFIED SITE 11/10/2009 VEGA FELIBERTO STEWART R 465.9 ACUTE UPPER RESPIRATORY INFECTIONS OF UNSPECIFIED SITE 11/10/2009 VEGA FELIBERTO STEWART R 465.9 ACUTE UPPER RESPIRATORY INFECTIONS OF UNSPECIFIED SITE 11/10/2009 OWEN DO ANA LAURA K 465.9 ACUTE UPPER RESPIRATORY INFECTIONS OF UNSPECIFIED SITE 11/10/2009 OWEN DO, ANA LAURA K 465.9 ACUTE UPPER RESPIRATORY INFECTIONS OF UNSPECIFIED SITE 11/10/2009 VEGA FELIBERTO STEWART R 465.9 ACUTE UPPER RESPIRATORY INFECTIONS OF UNSPECIFIED SITE 11/10/2009 OWEN DO, ANA LAURA K 465.9 ACUTE UPPER RESPIRATORY INFECTIONS OF UNSPECIFIED SITE 11/10/2009 VEGA FELIBERTO STEWART R 465.9 ACUTE UPPER RESPIRATORY INFECTIONS OF UNSPECIFIED SITE 11/10/2009 NKECHI OWEN DOA K 465.9 ACUTE UPPER RESPIRATORY INFECTIONS OF UNSPECIFIED SITE 11/10/2009 LEXIE DO ANA LAURA K 465.9 ACUTE UPPER RESPIRATORY INFECTIONS OF UNSPECIFIED SITE 04/07/2010 FELIBERTO VEGA APRN 386.10 PERIPHERAL VERTIGO UNSPECIFIED 04/07/2010 FELIBERTO VEGA APRN 719.46 PAIN IN JOINT INVOLVING LOWER LEG 04/07/2010 386.10 PERIPHERAL VERTIGO UNSPECIFIED 04/07/2010 719.46 PAIN IN JOINT INVOLVING LOWER LEG 04/07/2010 FELIBERTO VEGA APRN 386.10 PERIPHERAL VERTIGO UNSPECIFIED 04/07/2010 FELIBERTO VEGA APRN 719.46 PAIN IN JOINT INVOLVING LOWER LEG 04/07/2010 386.10 PERIPHERAL VERTIGO UNSPECIFIED 04/07/2010 719.46 PAIN IN JOINT INVOLVING LOWER LEG 04/07/2010 386.10 PERIPHERAL VERTIGO UNSPECIFIED 04/07/2010 719.46 PAIN IN JOINT INVOLVING LOWER LEG 04/07/2010 386.10 PERIPHERAL VERTIGO UNSPECIFIED 04/07/2010 719.46 PAIN IN JOINT INVOLVING LOWER LEG 04/07/2010 386.10 PERIPHERAL VERTIGO UNSPECIFIED 04/07/2010 719.46 PAIN IN JOINT INVOLVING LOWER LEG 04/07/2010 386.10 PERIPHERAL VERTIGO UNSPECIFIED 04/07/2010 719.46 PAIN IN JOINT INVOLVING LOWER LEG 04/07/2010 OWEN DONKECHIA K 386.10 PERIPHERAL VERTIGO UNSPECIFIED 04/07/2010 OWEN DONKECHIA K 719.46 PAIN IN JOINT INVOLVING LOWER LEG 04/07/2010 OWEN DONKECHIA K 386.10 PERIPHERAL VERTIGO UNSPECIFIED 04/07/2010 ANA LAURA OWEN DO K 719.46 PAIN IN JOINT INVOLVING LOWER LEG 04/07/2010 FELIBERTO VEGA APRN 386.10 PERIPHERAL VERTIGO UNSPECIFIED 04/07/2010 FELIBERTO VEGA APRN 719.46 PAIN IN JOINT INVOLVING LOWER LEG 04/07/2010 OWEN DOANA LAURA K 386.10 PERIPHERAL VERTIGO UNSPECIFIED 04/07/2010 ANA LAURA OWEN DO K 719.46 PAIN IN JOINT INVOLVING LOWER LEG 04/07/2010 FELIBERTO VEGA APRN 386.10 PERIPHERAL VERTIGO UNSPECIFIED 04/07/2010 FELIBERTO VEGA APRN 719.46 PAIN IN JOINT INVOLVING LOWER LEG 04/07/2010 FELIBERTO VEGA APRN 386.10 PERIPHERAL VERTIGO UNSPECIFIED 04/07/2010 FELIBERTO VEGA APRN 719.46 PAIN IN JOINT INVOLVING LOWER LEG 04/07/2010 OWEN DONKECHIA K 386.10 PERIPHERAL VERTIGO UNSPECIFIED 04/07/2010 NKECHI OWEN DOA K 719.46 PAIN IN JOINT INVOLVING LOWER LEG 04/07/2010 OWEN DO ANA LAURA K 386.10 PERIPHERAL VERTIGO UNSPECIFIED 04/07/2010 OWEN DO ANA LAURA K 719.46 PAIN IN JOINT INVOLVING LOWER LEG 04/07/2010 FELIBERTO VEGA APRN 386.10 PERIPHERAL VERTIGO UNSPECIFIED 04/07/2010 FELIBERTO VEGA APRN 719.46 PAIN IN JOINT INVOLVING LOWER LEG 04/07/2010 LEXIE DOANA LAURA K 386.10 PERIPHERAL VERTIGO UNSPECIFIED 04/07/2010 LEXIE DONKECHIA K 719.46 PAIN IN JOINT INVOLVING LOWER LEG 04/07/2010 FELIBERTO VEGA APRN 386.10 PERIPHERAL VERTIGO UNSPECIFIED 04/07/2010 FELIBERTO VEGA APRN 719.46 PAIN IN JOINT INVOLVING LOWER LEG 04/07/2010 LEXIE DOANA LAURA K 386.10 PERIPHERAL VERTIGO UNSPECIFIED 04/07/2010 LEXIE DOANA LAURA K 719.46 PAIN IN JOINT INVOLVING LOWER LEG 04/07/2010 LEXIE DONKECHIA K 386.10 PERIPHERAL VERTIGO UNSPECIFIED 04/07/2010 LEXIE DOANA LAURA K 719.46 PAIN IN JOINT INVOLVING LOWER LEG 07/18/2010 FELIBERTO VEGA APRN 611.72 LUMP OR MASS IN BREAST 07/18/2010 FELIBERTO VEGA APRN 847.0 SPRAIN OF NECK 07/18/2010 611.72 LUMP OR MASS IN BREAST 07/18/2010 847.0 SPRAIN OF NECK 07/18/2010 FELIBERTO VEGA APRN 611.72 LUMP OR MASS IN BREAST 07/18/2010 FELIBERTO VEGA APRN 847.0 SPRAIN OF NECK 07/18/2010 611.72 LUMP OR MASS IN BREAST 07/18/2010 847.0 SPRAIN OF NECK 07/18/2010 611.72 LUMP OR MASS IN BREAST 07/18/2010 847.0 SPRAIN OF NECK 07/18/2010 611.72 LUMP OR MASS IN BREAST 07/18/2010 847.0 SPRAIN OF NECK 07/18/2010 611.72 LUMP OR MASS IN BREAST 07/18/2010 847.0 SPRAIN OF NECK 07/18/2010 611.72 LUMP OR MASS IN BREAST 07/18/2010 847.0 SPRAIN OF NECK 07/18/2010 ANA LAURA OWEN DO 611.72 LUMP OR MASS IN BREAST 07/18/2010 LEXIE DONKECHIA K 847.0 SPRAIN OF NECK 07/18/2010 ANA LAURA OWEN DO K 611.72 LUMP OR MASS IN BREAST 07/18/2010 OWEN DO, ANA LAURA K 847.0 SPRAIN OF NECK 07/18/2010 VEGA FIELD SERVICE SPECIALIST, FELIBERTO R 611.72 LUMP OR MASS IN BREAST 07/18/2010 VEGA FIELD SERVICE SPECIALIST, FELIBERTO R 847.0 SPRAIN OF NECK 07/18/2010 OWEN DO, ANA LAURA K 611.72 LUMP OR MASS IN BREAST 07/18/2010 OWEN DO, ANA LAURA K 847.0 SPRAIN OF NECK 07/18/2010 VEGA FIELD SERVICE SPECIALIST, FELIBERTO R 611.72 LUMP OR MASS IN BREAST 07/18/2010 VEGA FIELD SERVICE SPECIALIST, FELIBERTO R 847.0 SPRAIN OF NECK 07/18/2010 VEGA FIELD SERVICE SPECIALIST, FELIBERTO R 611.72 LUMP OR MASS IN BREAST 07/18/2010 VEGA FIELD SERVICE SPECIALIST, FELIBERTO R 847.0 SPRAIN OF NECK 07/18/2010 OWEN DO, ANA LAURA K 611.72 LUMP OR MASS IN BREAST 07/18/2010 OWEN DO, ANA LAURA K 847.0 SPRAIN OF NECK 07/18/2010 OWEN DO, ANA LAURA K 611.72 LUMP OR MASS IN BREAST 07/18/2010 OWEN DO, ANA LAURA K 847.0 SPRAIN OF NECK 07/18/2010 VEGA FIELD SERVICE SPECIALIST, FELIBERTO R 611.72 LUMP OR MASS IN BREAST 07/18/2010 VEGA FIELD SERVICE SPECIALIST, FELIBERTO R 847.0 SPRAIN OF NECK 07/18/2010 OWEN DO, ANA LAURA K 611.72 LUMP OR MASS IN BREAST 07/18/2010 OWEN DO, ANA LAURA K 847.0 SPRAIN OF NECK 07/18/2010 VEGA FIELD SERVICE SPECIALIST, FELIBERTO R 611.72 LUMP OR MASS IN BREAST 07/18/2010 VEGA FIELD SERVICE SPECIALIST, FELIBERTO R 847.0 SPRAIN OF NECK 07/18/2010 OWEN DO, ANA LAURA K 611.72 LUMP OR MASS IN BREAST 07/18/2010 OWEN DO, ANA LAURA K 847.0 SPRAIN OF NECK 07/18/2010 OWEN DO, ANA LAURA K 611.72 LUMP OR MASS IN BREAST 07/18/2010 OWEN DO, ANA LAURA K 847.0 SPRAIN OF NECK 05/18/2011 VEGA FIELD SERVICE SPECIALIST, FELIBERTO R 272.0 PURE HYPERCHOLESTEROLEMIA 05/18/2011 272.0 PURE HYPERCHOLESTEROLEMIA 05/18/2011 VEGA FIELD SERVICE SPECIALIST, FELIBERTO R 272.0 PURE HYPERCHOLESTEROLEMIA 05/18/2011 272.0 PURE HYPERCHOLESTEROLEMIA 05/18/2011 272.0 PURE HYPERCHOLESTEROLEMIA 05/18/2011 272.0 PURE HYPERCHOLESTEROLEMIA 05/18/2011 272.0 PURE HYPERCHOLESTEROLEMIA 05/18/2011 272.0 PURE HYPERCHOLESTEROLEMIA 05/18/2011 OWEN DO, ANA LAURA K 272.0 PURE HYPERCHOLESTEROLEMIA 05/18/2011 OWEN DO, ANA LAURA K 272.0 PURE HYPERCHOLESTEROLEMIA 05/18/2011 VEGA FIELD SERVICE SPECIALIST, FELIBERTO R 272.0 PURE HYPERCHOLESTEROLEMIA 05/18/2011 OWEN DO, ANA LAURA K 272.0 PURE HYPERCHOLESTEROLEMIA 05/18/2011 VEGA TERRY, FELIBERTO R 272.0 PURE HYPERCHOLESTEROLEMIA 05/18/2011 VEGA FIELD SERVICE SPECIALIST, FELIBERTO R 272.0 PURE HYPERCHOLESTEROLEMIA 05/18/2011 OWEN DO, ANA LAURA K 272.0 PURE HYPERCHOLESTEROLEMIA 05/18/2011 OWNE DO, ANA LAURA K 272.0 PURE HYPERCHOLESTEROLEMIA 05/18/2011 VEGA FIELD SERVICE SPECIALIST, FELIBERTO R 272.0 PURE HYPERCHOLESTEROLEMIA 05/18/2011 OWEN DO, ANA LAURA K 272.0 PURE HYPERCHOLESTEROLEMIA 05/18/2011 VEGA TERRY FELIBERTO R 272.0 PURE HYPERCHOLESTEROLEMIA 05/18/2011 OWEN DO, ANA LAURA K 272.0 PURE HYPERCHOLESTEROLEMIA 05/18/2011 OWEN DO, ANA LAURA K 272.0 PURE HYPERCHOLESTEROLEMIA 05/23/2011 FELIBERTO VEGA APRN 250.00 DIABETES II CONTROLLED (UNCOMPLICATED) 05/23/2011 250.00 DIABETES II CONTROLLED (UNCOMPLICATED) 05/23/2011 FELIBERTO VEGA APRN 250.00 DIABETES II CONTROLLED (UNCOMPLICATED) 05/23/2011 250.00 DIABETES II CONTROLLED (UNCOMPLICATED) 05/23/2011 250.00 DIABETES II CONTROLLED (UNCOMPLICATED) 05/23/2011 250.00 DIABETES II CONTROLLED (UNCOMPLICATED) 05/23/2011 250.00 DIABETES II CONTROLLED (UNCOMPLICATED) 05/23/2011 250.00 DIABETES II CONTROLLED (UNCOMPLICATED) 05/23/2011 OWEN DO, ANA LAURA K 250.00 DIABETES II CONTROLLED (UNCOMPLICATED) 05/23/2011 OWEN DO, ANA LAURA K 250.00 DIABETES II CONTROLLED (UNCOMPLICATED) 05/23/2011 FELIBERTO VEGA APRN 250.00 DIABETES II CONTROLLED (UNCOMPLICATED) 05/23/2011 OWEN DO, ANA LAURA K 250.00 DIABETES II CONTROLLED (UNCOMPLICATED) 05/23/2011 FELIBERTO EVGA APRN 250.00 DIABETES II CONTROLLED (UNCOMPLICATED) 05/23/2011 FELIBERTO VEGA APRN 250.00 DIABETES II CONTROLLED (UNCOMPLICATED) 05/23/2011 ANA LAURA OWEN DO 250.00 DIABETES II CONTROLLED (UNCOMPLICATED) 05/23/2011 ANA LAURA OWEN DO K 250.00 DIABETES II CONTROLLED (UNCOMPLICATED) 05/23/2011 FELIBERTO VEGA APRN 250.00 DIABETES II CONTROLLED (UNCOMPLICATED) 05/23/2011 ANA LAURA OWEN DO 250.00 DIABETES II CONTROLLED (UNCOMPLICATED) 05/23/2011 FELIBERTO VEGA APRN 250.00 DIABETES II CONTROLLED (UNCOMPLICATED) 05/23/2011 ANA LAURA OWEN DO 250.00 DIABETES II CONTROLLED (UNCOMPLICATED) 05/23/2011 ANA LAURA OWEN DO 250.00 DIABETES II CONTROLLED (UNCOMPLICATED) 12/07/2011 FELIBERTO VEGA APRN V04.81 FLU DX (3 YRS AND ABOVE, IM) 12/07/2011 V04.81 FLU DX (3 YRS AND ABOVE, IM) 12/07/2011 FELIBERTO VEGA APRN V04.81 FLU DX (3 YRS AND ABOVE, IM) 12/07/2011 V04.81 FLU DX (3 YRS AND ABOVE, IM) 12/07/2011 V04.81 FLU DX (3 YRS AND ABOVE, IM) 12/07/2011 V04.81 FLU DX (3 YRS AND ABOVE, IM) 12/07/2011 V04.81 FLU DX (3 YRS AND ABOVE, IM) 12/07/2011 V04.81 FLU DX (3 YRS AND ABOVE, IM) 12/07/2011 ANA LAURA OWEN DO V04.81 FLU DX (3 YRS AND ABOVE, IM) 12/07/2011 ANA LAURA OWEN DO V04.81 FLU DX (3 YRS AND ABOVE, IM) 12/07/2011 FELIBERTO VEGA APRN V04.81 FLU DX (3 YRS AND ABOVE, IM) 12/07/2011 ANA LAURA OWEN DO V04.81 FLU DX (3 YRS AND ABOVE, IM) 12/07/2011 FELIBERTO VEGA APRN V04.81 FLU DX (3 YRS AND ABOVE, IM) 12/07/2011 FELIBERTO VEGA APRN V04.81 FLU DX (3 YRS AND ABOVE, IM) 12/07/2011 OWEN DO, ANA LAURA K V04.81 FLU DX (3 YRS AND ABOVE, IM) 12/07/2011 OWEN DO, ANA LAURA K V04.81 FLU DX (3 YRS AND ABOVE, IM) 12/07/2011 SILVIA LIGHTFELIBERTO Phelps V04.81 FLU DX (3 YRS AND ABOVE, IM) 12/07/2011 OWEN DO, ANA LAURA K V04.81 FLU DX (3 YRS AND ABOVE, IM) 12/07/2011 SILVIA LIGHTFELIBERTO Phelps V04.81 FLU DX (3 YRS AND ABOVE, IM) 12/07/2011 OWEN DO, ANA LAURA K V04.81 FLU DX (3 YRS AND ABOVE, IM) 12/07/2011 OWEN DO, ANA LAURA K V04.81 FLU DX (3 YRS AND ABOVE, IM) 03/26/2012 FELIBERTO VEGA APRN 780.52 INSOMNIA UNSPECIFIED 03/26/2012 780.52 INSOMNIA UNSPECIFIED 03/26/2012 780.52 INSOMNIA UNSPECIFIED 03/26/2012 780.52 INSOMNIA UNSPECIFIED 03/26/2012 780.52 INSOMNIA UNSPECIFIED 03/26/2012 780.52 INSOMNIA UNSPECIFIED 03/26/2012 ANA LAURA OWEN DO 780.52 INSOMNIA UNSPECIFIED 03/26/2012 ANA LAURA OWEN DO K 780.52 INSOMNIA UNSPECIFIED 03/26/2012 FELIBERTO VEGA APRN 780.52 INSOMNIA UNSPECIFIED 03/26/2012 ANA LAURA OWEN DO 780.52 INSOMNIA UNSPECIFIED 03/26/2012 FELIBERTO VEGA APRN 780.52 INSOMNIA UNSPECIFIED 03/26/2012 ANA LAURA OWEN DO K 780.52 INSOMNIA UNSPECIFIED 03/26/2012 NKECHI OWEN DOA K 780.52 INSOMNIA UNSPECIFIED 03/26/2012 FELIBERTO VEGA APRN 780.52 INSOMNIA UNSPECIFIED 03/26/2012 ANA LAURA OWEN DO K 780.52 INSOMNIA UNSPECIFIED 03/26/2012 FELIBERTO VEGA APRN 780.52 INSOMNIA UNSPECIFIED 03/26/2012 NKECHI OWEN DOA K 780.52 INSOMNIA UNSPECIFIED 03/26/2012 LEXIE MERINO ANA LAURA K 780.52 INSOMNIA UNSPECIFIED 09/26/2012 724.3 SCIATICA 09/26/2012 724.3 SCIATICA 09/26/2012 724.3 SCIATICA 09/26/2012 ANA LAURA OWEN DO K 724.3 SCIATICA 09/26/2012 OWEN ANA LAURA MERINO K 724.3 SCIATICA 09/26/2012 FELIBERTO VEGA APRN 724.3 SCIATICA 09/26/2012 ANA LAURA OWEN DO K 724.3 SCIATICA 09/26/2012 FELIBERTO VEGA APRN 724.3 SCIATICA 09/26/2012 OWEN ANA LAURA MERINO K 724.3 SCIATICA 09/26/2012 OWEN ANA LAURA MERINO K 724.3 SCIATICA 09/26/2012 FELIBERTO VEGA APRN 724.3 SCIATICA 09/26/2012 OWEN ANA LAURA K 724.3 SCIATICA 09/26/2012 FELIBERTO VEGA APRN 724.3 SCIATICA 09/26/2012 OWEN ANA LAURA MERINO K 724.3 SCIATICA 09/26/2012 OWEN ANA LAUAR MERINO K 724.3 SCIATICA Procedures Code Description [place] [address] A1C (IN-HOUSE) 12/07/2011 82606 A1C (IN-HOUSE) 06/23/2012 J1100 DEXAMETHASONE SODIUM PHOS, 1 MG 09/26/2012 [id number] TORADOL INJ 09/26/2012 [id number] A1C (IN-HOUSE) 10/29/2012 [id number] MICRO ALBUMIN-IN HOUSE 10/29/2012 [id number] FLU ADMINISTRATION ( MEDICARE ONLY) 10/29/2012 [id number] A1C (IN-HOUSE) 03/04/2013 [id number] ROUTINE VENIPUNCTURE 08/10/2013 [id number] MICRO ALBUMIN-IN HOUSE 08/10/2013 [id number] CBC 08/10/2013 [id number] GFR CALC (RESULT ONLY) 08/10/2013 [id number] CMP 08/10/2013 47579 LIPID PANEL 08/10/2013 19816 A1C (IN-HOUSE) 08/13/2013 74236 A1C (IN-HOUSE) 11/19/2013 28041 A1C (IN-HOUSE) 02/23/2014 Results There is no data. Encounters ACCT No. Visit Date/Time Discharge Status Pt. Type Provider Facility Loc./Unit Complaint [id number] 03/23/2014 09:23:00 03/23/2014 23:59:59 CLS Outpatient ANA LAURA OWEN DO [id number] 02/23/2014 11:24:00 02/23/2014 23:59:59 CLS Outpatient OWEN DOANA LAURA [id number] 11/19/2013 08:28:00 11/19/2013 23:59:59 CLS Outpatient SILVIA LIGHTFELIBERTO Phelps [id number] 11/19/2013 08:28:00 11/19/2013 23:59:59 CLS Outpatient OWEN DOANA LAURA [id number] 08/13/2013 08:29:00 08/13/2013 23:59:59 CLS Outpatient OWEN DOANA LAURA [id number] 08/13/2013 08:29:00 08/13/2013 23:59:59 CLS Outpatient VEGA FELIBERTO STEWART [id number] 08/10/2013 08:41:00 08/10/2013 23:59:59 CLS Outpatient OWEN DOANA LAURA [id number] 03/04/2013 14:43:00 03/04/2013 23:59:59 CLS Outpatient OWEN DOANA LAURA [id number] 03/04/2013 14:43:00 03/04/2013 23:59:59 CLS Outpatient VEGAFELIBERTO EMANUEL APRN [id number] 12/29/2012 10:54:00 12/29/2012 23:59:59 CLS Outpatient VEGAFELIBERTO EMANUEL APRN [id number] 11/27/2012 14:23:00 11/27/2012 23:59:59 CLS Outpatient OWEN DOANA LAURA Taiwo [id number] 10/29/2012 09:42:00 10/29/2012 23:59:59 CLS Outpatient OWEN DOANA LAURA Taiwo [id number] 03/26/2012 08:54:00 03/26/2012 23:59:59 CLS Outpatient FELIBERTO VGEA APRN [id number] 03/12/2012 08:19:00 03/12/2012 23:59:59 CLS Outpatient [id number] 12/07/2011 08:24:00 12/07/2011 23:59:59 CLS Outpatient FELIBERTO VEGA APRN [id number] 12/07/2011 08:24:00 12/07/2011 23:59:59 CLS Outpatient VEGAFELIBERTO EMANUEL APRN [id number] 09/30/2012 14:05:00 Document Registration [id number] 09/26/2012 08:54:00 Document Registration [id number] 09/26/2012 08:54:00 Document Registration [id number] 07/25/2012 08:50:00 Document Registration [id number] 06/23/2012 10:14:00 Document Registration
[2018-03-16] MEDS ORDERED: PIPERACILLIN SODIUM/TAZOBACTAM 4.5 GM in NS (IVPB) 100 ML IV ONE (20:30)
[2018-03-16] MEDS ORDERED: ONDANSETRON 4 MG/2 ML (SDV) Z0FRAN IVP PRN (20:30)
[2018-03-16] MEDS ORDERED: NS IV 1000 ML 1,000 ML ONE (20:38)
[2018-03-16] MEDS ORDERED: PIPERACILLIN/TAZO 4.5 GM VIAL (ZOSYN) IV ONE (20:38)
[2018-03-16] MEDS ORDERED: fentaNYL INJECTION 100 MCG/2 ML AMP ONE (20:44)
[2018-03-16] MEDS: fentaNYL INJECTION 100 MCG/2 ML AMP IVP PRN ×2 (20:56→23:23)
[2018-03-16] MEDS: NS IV 1000 ML 1,000 ML IV SCH (21:12)
[2018-03-17] VITALS: BP 120/63
[2018-03-17] MEDS: fentaNYL INJECTION 100 MCG/2 ML AMP IVP PRN ×7 (01:48→20:36)
[2018-03-17] MEDS: PIPERACILLIN SODIUM/TAZOBACTAM 4.5 GM in NS (IVPB) 100 ML IV SCH ×3 (02:37→17:37)
[2018-03-17 04:00] VITALS: BP 122/75
[2018-03-17 06:25] LABS: BASOPHILS % (AUTO) 0 % (0-10); EOSINOPHILS # (AUTO) 0.1 10^3/uL (0.0-0.3); EOSINOPHILS % (AUTO) 1 % (0-10); HEMATOCRIT 31 % (35-52); HEMOGLOBIN 10.4 G/DL (11.5-16.0); LYMPHOCYTES # (AUTO) 2.3 X 10^3 (1.0-4.0); LYMPHOCYTES % (AUTO) 36 % (12-44); MEAN CORPUSCULAR HEMOGLOBIN 30 PG (25-34); MEAN CORPUSCULAR HGB CONC 34 G/DL (32-36); MEAN CORPUSCULAR VOLUME 87 FL (80-99); MEAN PLATELET VOLUME 11.6 FL (7.4-10.4); MONOCYTES # (AUTO) 0.7 X 10^3 (0.0-1.0); MONOCYTES % (AUTO) 12 % (0-12); NEUTROPHILS # (AUTO) 3.2 X 10^3 (1.8-7.8); NEUTROPHILS % (AUTO) 51 % (42-75); PLATELET COUNT 287 10^3/uL (130-400); WHITE BLOOD COUNT 6.3 10^3/uL (4.3-11.0)
[2018-03-17 06:46] LABS: ALANINE AMINOTRANSFERASE 39 U/L (0-55); ALBUMIN 3.2 GM/DL (3.2-4.5); ALKALINE PHOSPHATASE 120 U/L (40-136); AMYLASE 193 U/L (25-125); BILIRUBIN,TOTAL 0.4 MG/DL (0.1-1.0); BUN/CREATININE RATIO 16; CALCIUM 8.4 MG/DL (8.5-10.1); CARBON DIOXIDE 23 MMOL/L (21-32); CHLORIDE 104 MMOL/L (98-107); CREATININE SERUM 0.73 MG/DL (0.60-1.30); GFR ESTIMATED > 60; GLUCOSE 136 MG/DL (70-105); LIPASE 485 U/L (8-78); POTASSIUM 3.3 MMOL/L (3.6-5.0); SODIUM 137 MMOL/L (135-145); TOTAL PROTEIN 5.9 GM/DL (6.4-8.2)
[2018-03-17 08:00] VITALS: BP 128/67
[2018-03-17] MEDS: NS IV 1000 ML 1,000 ML IV SCH ×2 (08:24→12:50)
[2018-03-17] MEDS ORDERED: LISI-552 PO (09:52)
[2018-03-17] MEDS ORDERED: LISI1TAB10 PO (09:52)
[2018-03-17] MEDS ORDERED: ESCI20TA PO (09:53)
[2018-03-17] MEDS ORDERED: CALC1TAB PO (09:53)
[2018-03-17] MEDS ORDERED: ESTR1TAB27 PO (09:54)
[2018-03-17] MEDS ORDERED: TRAZ-189 PO (09:55)
[2018-03-17] MEDS ORDERED: GEMF600T8 PO (09:55)
[2018-03-17] MEDS ORDERED: LIRA0.6P3 SQ (09:56)
--- NOTE | 2018-03-17 09:57 | NUR ---
Spoke to patient and daughter. Daughter called the doctor office to get a medication list.
--- NOTE | 2018-03-17 10:00 | NUR ---
PRIOR TO MEDICATIONS THIS A.M. PULSE WAS 56 AND B/P WAS 128/76
--- NOTE | 2018-03-17 10:24 | Diagnostic Imaging Report ---
PROCEDURE: US Gallbladder. TECHNIQUE: Multiple real-time grayscale images were obtained over the right upper quadrant in various projections. INDICATION: Cholecystitis. FINDINGS: Liver is normal size 16 cm. There is some mild generalized increased echogenicity suggestive of hepatic steatosis. No discrete liver mass is identified. Portal vein is patent and shows normal direction of flow. Gallbladder is without stones or sludge. No wall thickening or pericholecystic fluid is seen. Extrahepatic bile duct is minimally prominent at 7 mm. In addition, pancreatic duct is minimally prominent. No definite common duct stone is detected. The right kidney is unremarkable. There is no ascites. IMPRESSION: 1. Mild hepatic steatosis. No discrete liver mass is identified. 2. No evidence of cholelithiasis or acute cholecystitis. Note is made that the extrahepatic bile duct as well as the pancreatic duct are minimally prominent. No definite common duct stone is detected. Dictated by: Dictated on workstation # [id number]
[2018-03-17 12:00] VITALS: BP 115/58
--- NOTE | 2018-03-17 12:23 | Consultation-Hospitalist ---
HPI History of Present Illness: HPI/Chief Complaint CC: Acute pancreatitis HPI: This is a 67-year-old white female who sees Dr. Haas [place] [facility] with Altagracia Otoole who presented to the [place] ER with abdominal pain found to have acute pancreatitis and was sent to Dr. Chambers service the via [facility]. At this current time abdominal pain is improved but still needs some pain medication at times. Lipase has decreased rapidly. Dr. Chambers obtained ultrasound and we will be working through the possibility of pancreatitis for medication source. At this current time patient denies any nausea and overall feeling better except for pain. Source: patient Exam Limitations: no limitations Date Seen 03/17/18 Attending Physician Cristo Chambers DO PCP Logan Haas Referring Physician Date of Admission Mar 16, 2018 at 20:14 Home Medications & Allergies Home Medications Reviewed patient Home Medication Reconciliation performed by pharmacy medication reconciliations equipment technician and/or nursing. Patients Allergies have been reviewed. 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) Alcohol Use: Denies Use Recreational Drug Use: No Physical Abuse Screen: No Sexual Abuse: No Recent Foreign Travel: No Contact w/other who traveled: No Recent Hopitalizations: No Recent Infectious Disease Expo: No Immunizations Up To Date Pediatric: Yes Date of Influenza Vaccine: Nov 13, 2017 Seasonal Allergies Seasonal Allergies: No Past Medical History Cardiac: High Cholesterol, Hypertension Sexually Transmitted Disease: No HIV/AIDS: No Female Reproductive Disorders: Denies Gastrointestinal: Pancreatitis Endocrine: Diabetes, Non-Insulin dep Psychosocial: Anxiety, Depression History of Blood Disorders: No Adverse Reaction to Blood Morales: No Family History Diabetes Review of Systems Constitutional: see HPI, malaise EENTM: no symptoms reported Respiratory: no symptoms reported Cardiovascular: no symptoms reported Gastrointestinal: abdominal pain, loss of appetite, nausea, vomiting Musculoskeletal: no symptoms reported Skin: no symptoms reported Psychiatric/Neurological: No Symptoms Reported All Other Systems Reviewed Negative Unless Noted: Yes Physical Exam Physical Exam Vital Signs Vital Signs - First Documented 03/16/18 20:10 Temp 98.7 Pulse 64 Resp 20 B/P (MAP) 144/68 Pulse Ox 96 O2 Delivery Room Air Capillary Refill : Height, Weight, BMI Height: 5'3.00" Weight: 184lbs. 8.0oz. 83.557708te; 32.7 BMI Method: General Appearance: No Apparent Distress, WD/WN, Chronically ill Eyes: Bilateral Eye Normal Inspection, Bilateral Eye PERRL HEENT: PERRL/EOMI, TMs Normal, Normal ENT Inspection, Pharynx Normal Neck: Full Range of Motion, Normal Inspection, Non Tender, Supple, Carotid Bruit Respiratory: Chest Non Tender, Lungs Clear, Normal Breath Sounds, No Accessory Muscle Use, No Respiratory Distress Cardiovascular: Regular Rate, Rhythm, No Edema, No Gallop, No JVD, No Murmur, Normal Peripheral Pulses Gastrointestinal: Normal Bowel Sounds, No Organomegaly, No Pulsatile Mass, Soft , Tenderness Back: Normal Inspection, No CVA Tenderness, No Vertebral Tenderness Extremity: Normal Capillary Refill, Normal Inspection, Normal Range of Motion, Non Tender, No Calf Tenderness, No Pedal Edema Neurologic/Psychiatric: Alert, Oriented x3, No Motor/Sensory Deficits, Normal Mood/Affect Skin: Normal Color, Warm/Dry Lymphatic: No Adenopathy Results Results/Procedures Labs Laboratory Tests 03/17/18 05:36 Patient resulted labs reviewed. Assessment/Plan Assessment and Plan Assess & Plan/Chief Complaint Assessment: Acute pancreatitis Abdominal pain Diabetes mellitus on Victoza Hypertension Hyperlipidemia Depression Plan: If you have status IV fluids IV pain medication Evaluate imaging scan Diagnosis/Problems Diagnosis/Problems (1) Pancreatitis Status: Acute Qualifiers: Chronicity: acute Pancreatitis type: unspecified pancreatitis type Acute pancreatitis complication: unspecified Qualified Codes: K85.90 - Acute pancreatitis without necrosis or infection, unspecified Clinical Quality Measures DVT/VTE Risk/Contraindication: Risk Factor Score Per Nursin RFS Level Per Nursing on Admit: 2=Moderate BALA CARROLL DO Mar 17, 2018 12:23
[2018-03-17 16:00] VITALS: BP 130/72
--- NOTE | 2018-03-17 18:35 | History & Physical-Surgical ---
History of Present Illness History of Present Illness Reason for visit/HPI chief complaint epigastric abdominal pain. Patient is a 67-year-old female who began having epigastric abdominal pain for a couple days. Patient states burning/stabbing type pain that's in the epigastric region no radiation of pain. Patient states that nothing was really making it better. Nothing was seems to make it worse. Patient states that worsens to 10 out of 10. Patient states that it does vary in intensity some. She states that nothing makes it better. Nothing makes it worse that she knows of. Patient has had previous pain many years ago that was similar.patient outside facility had elevated amylase and lipase. Her white count was 10.6. She had a CT scan which just demonstrated possibility of a slightly distended gallbladder and gallbladder wall thickening and recommended ultrasound for further evaluation. Patient with no other complaints at this time. She denies any nausea vomiting fever sweats chills shortness of breath or chest pain at this time. Date of Admission Mar 16, 2018 at 20:14 Date Seen by a Provider: Mar 17, 2018 Time Seen by a Provider: 09:01 I consulted on this patient on 03/17/18 18:27 Attending Physician Jackelyn Chambers DO Admitting Physician [facility] Consult Allergies and Home Medications Allergies Uncoded Allergies: CODIENVickey (Allergy, Unknown, 03/16/18) Home Medications Calcium Carbonate/Vitamin D3 1 Each Tablet, 1 EACH PO BID, (Reported) Escitalopram Oxalate 20 Mg Tablet, 20 MG PO DAILY, (Reported) Estradiol 1 Mg Tablet, 1 MG PO DAILY, (Reported) Gemfibrozil 600 Mg Tablet, 600 MG PO BID, (Reported) Liraglutide 0.6 Mg/0.1 Ml Pen.injctr, 1.8 MG SQ HS, (Reported) Lisinopril 20 Mg Tablet, 20 MG PO HS, (Reported) Lisinopril/Hydrochlorothiazide 1 Each Tablet, 1 EACH PO DAILY, (Reported) Trazodone HCl 50 Mg Tablet, 75 MG PO HS, (Reported) Patient Home Medication List Home Medication List Reviewed: Yes Past Zamqrqj-Zengcp-Gxyuzz Hx Patient Social History Alcohol Use: Denies Use Recreational Drug Use: No Recent Foreign Travel: No Contact w/Someone Who Travel: No Recent Infectious Disease Expo: No Recent Hopitalizations: No Physical Abuse Screen: No Sexual Abuse: No Immunizations Up To Date PED Vaccines UTD: Yes Date of Influenza Vaccine: Nov 13, 2017 Seasonal Allergies Seasonal Allergies: No Surgeries History of Surgeries: Yes (RODS AND SCREWS PLACED 5 YRS AGO) Respiratory History of Respiratory Disorde: No Cardiovascular History of Cardiac Disorders: Yes Cardiac Disorders: High Cholesterol, Hypertension Reproductive System Sexually Transmitted Disease: No HIV/AIDS: No Female Reproductive Disorders: Denies Genitourinary History of Genitourinary Disor: No Gastrointestinal History of Gastrointestinal Di: Yes (FATTY LIVER) Gastrointestinal Disorders: Pancreatitis Musculoskeletal History of Musculoskeletal Dis: No Endocrine History of Endocrine Disorders: Yes (TYPE 2) Endocrine Disorders: Diabetes, Non-Insulin dep HEENT History of HEENT Disorders: No Cancer History of Cancer: No Psychosocial History of Psychiatric Problem: Yes Behavioral Health Disorders: Anxiety, Depression Integumentary History of Skin or Integumenta: No Blood Transfusions History of Blood Disorders: No Adverse Reaction to a Blood Tr: No Family Medical History Significant Family History: Diabetes Review of Systems Constitutional: see HPI EENTM: no symptoms reported Respiratory: no symptoms reported Cardiovascular: no symptoms reported Gastrointestinal: see HPI Genitourinary: no symptoms reported Musculoskeletal: no symptoms reported Skin: no symptoms reported Psychiatric/Neurological: No Symptoms Reported Physical Exam Vital Signs Vital Signs - First Documented 03/16/18 20:10 Temp 98.7 Pulse 64 Resp 20 B/P (MAP) 144/68 Pulse Ox 96 O2 Delivery Room Air Capillary Refill : Height, Weight, BMI Height: 5'3.00" Weight: 184lbs. 8.0oz. 83.519748ar; 32.7 BMI Method: General Appearance: No Apparent Distress HEENT: PERRL/EOMI, Normal ENT Inspection Neck: Non Tender, Supple Respiratory: Chest Non Tender, No Accessory Muscle Use, No Respiratory Distress Cardiovascular: Regular Rate, Rhythm Gastrointestinal: Tenderness (epigastric region) Rectal: Deferred Back: Normal Inspection, No CVA Tenderness Extremity: Non Tender, No Calf Tenderness Neurologic/Psychiatric: Alert, Oriented x3, No Motor/Sensory Deficits, Normal Mood/Affect, occupational therapist assistants II-XII Norm as Tested Skin: Normal Color, Warm/Dry Lymphatic: No Adenopathy Data Review Labs Laboratory Tests 03/17/18 00:40: Glucometer 119H 03/17/18 05:05: Glucometer 135H 03/17/18 05:36: White Blood Count 6.3, Red Blood Count 3.50L, Hemoglobin 10.4L, Hematocrit 31L, Mean Corpuscular Volume 87, Mean Corpuscular Hemoglobin 30, Mean Corpuscular Hemoglobin Concent 34, Red Cell Distribution Width 12.0, Platelet Count 287, Mean Platelet Volume 11.6H, Neutrophils (%) (Auto) 51, Lymphocytes (%) (Auto) 36 , Monocytes (%) (Auto) 12, Eosinophils (%) (Auto) 1, Basophils (%) (Auto) 0, Neutrophils # (Auto) 3.2, Lymphocytes # (Auto) 2.3, Monocytes # (Auto) 0.7, Eosinophils # (Auto) 0.1, Basophils # (Auto) 0.0, Sodium Level 137, Potassium Level 3.3L, Chloride Level 104, Carbon Dioxide Level 23, Anion Gap 10, Blood Urea Nitrogen 12, Creatinine 0.73, Estimat Glomerular Filtration Rate > 60, BUN/ Creatinine Ratio 16, Glucose Level 136H, Calcium Level 8.4L, Corrected Calcium 9.0, Total Bilirubin 0.4, Aspartate Amino Transf (AST/SGOT) 55H, Alanine Aminotransferase (ALT/SGPT) 39, Alkaline Phosphatase 120, Total Protein 5.9L, Albumin 3.2, Amylase Level 193H, Lipase 485H 03/17/18 13:17: Glucometer 124H Assessment/Plan Assessment/Plan Admission Diagonsis epigastric abdominal pain pancreatitis questionable gallbladder cholecystitis Admission Status: Inpatient Order (span 2 midnights) Reason for Inpatient Admission: patient will need bowel rest, imaging studies and further medical management expected stay over 2 midnights. Assessment/Plan epigastric abdominal pain pancreatitis questionable gallbladder cholecystitis patient nothing by mouth at this time. IV hydration On Zosyn due to possibility of acute cholecystitis. Patient to get ultrasound of gallbladder Patient gallbladder ultrasound reviewed. No gallbladder wall thickening. No cholelithiasis. She does have some slight possibility of dilated ducts but no common bile duct stone was. Her bilirubin is normal therefore don't feel that she has obstructive stone in her duct. I feel this is more likely to her lipase which was around 1500 outside facility and is decreasing today. I feel this is most likely related to pancreatitis possibly secondary to medication. Repeat labs in morning also added triglycerides and cholesterol Clinical Quality Measures DVT/VTE Risk/Contraindication: Risk Factor Score Per Nursin RFS Level Per Nursing on Admit: 2=Moderate JACKELYN CHAMBERS DO Mar 17, 2018 18:35
[2018-03-17 20:00] VITALS: BP 135/63
[2018-03-17] MEDS: diphenhydrAMINE 50 MG/ML INJ (BENADRYL) IVP SCH (22:04)
[2018-03-18] VITALS: BP 144/69
[2018-03-18] MEDS: NS IV 1000 ML 1,000 ML IV SCH ×4 (00:20→18:06)
[2018-03-18] MEDS: PIPERACILLIN SODIUM/TAZOBACTAM 4.5 GM in NS (IVPB) 100 ML IV SCH ×3 (02:29→18:10)
[2018-03-18] MEDS: fentaNYL INJECTION 100 MCG/2 ML AMP IVP PRN ×6 (02:33→20:01)
[2018-03-18 04:00] VITALS: BP 130/64
[2018-03-18 06:45] LABS: HEMOGLOBIN 9.9 G/DL (11.5-16.0); MEAN PLATELET VOLUME 11.4 FL (7.4-10.4); RED CELL DISTRIBUTION WIDTH 12.1 % (10.0-14.5); WHITE BLOOD COUNT 6.9 10^3/uL (4.3-11.0)
[2018-03-18 07:10] LABS: ALANINE AMINOTRANSFERASE 37 U/L (0-55); ALBUMIN 3.2 GM/DL (3.2-4.5); ALKALINE PHOSPHATASE 109 U/L (40-136); AMYLASE 139 U/L (25-125); BILIRUBIN,TOTAL 0.4 MG/DL (0.1-1.0); BUN/CREATININE RATIO 18; CALCIUM 8.2 MG/DL (8.5-10.1); CARBON DIOXIDE 18 MMOL/L (21-32); CHLORIDE 108 MMOL/L (98-107); CHOLESTEROL 209 MG/DL (< 200); CREATININE SERUM 0.68 MG/DL (0.60-1.30); GFR ESTIMATED > 60; GLUCOSE 126 MG/DL (70-105); LIPASE 381 U/L (8-78); POTASSIUM 3.3 MMOL/L (3.6-5.0); SODIUM 138 MMOL/L (135-145); TOTAL PROTEIN 5.9 GM/DL (6.4-8.2); TRIGLYCERIDES 213 MG/DL (<150)
[2018-03-18 08:00] VITALS: BP 162/70
--- NOTE | 2018-03-18 09:34 | Progress Note-Hospitalist ---
CARROLLBALA DO 03/18/18 0934: Subjective HPI/CC On Admission Date Seen by Provider: Mar 18, 2018 Time Seen by Provider: 09:45 CC: Acute pancreatitis HPI: This is a 67-year-old white female who sees Dr. Haas [place] [facility] with Altagracia Otoole who presented to the [place] ER with abdominal pain found to have acute pancreatitis and was sent to Dr. Chambers service the via [facility]. At this current time abdominal pain is improved but still needs some pain medication at times. Lipase has decreased rapidly. Dr. Chambers obtained ultrasound and we will be working through the possibility of pancreatitis for medication source. At this current time patient denies any nausea and overall feeling better except for pain. Subjective/Events-last exam Pt is doing much better today No abdominal pain Pt is Hungry and wants at least some clear liquids so I did get approval from Dr. Chambers Pancreatic enzymes improved Victoza likely the source of the pancreatitis Reviewed home medications and restarted some blood pressure medicine Review of Systems General: Fatigue Gastrointestinal: Abdominal Pain Objective Exam Vital Signs Vital Signs Date Time Temp Pulse Resp B/P (MAP) Pulse Ox O2 Delivery O2 Flow Rate FiO2 03/18/18 16:00 98.4 60 19 161/88 (112) 98 Room Air Capillary Refill : General Appearance: No Apparent Distress HEENT: PERRL/EOMI, Normal ENT Inspection Neck: Non Tender, Supple Respiratory: Chest Non Tender, No Accessory Muscle Use, No Respiratory Distress Cardiovascular: Regular Rate, Rhythm Gastrointestinal: Normal Bowel Sounds, No Organomegaly, No Pulsatile Mass, Non Tender, Soft, Tenderness (epigastric region) Rectal: Deferred Back: Normal Inspection, No CVA Tenderness Extremity: Non Tender, No Calf Tenderness Neurologic/Psychiatric: Alert, Oriented x3, No Motor/Sensory Deficits, Normal Mood/Affect, ornamental painter II-XII Norm as Tested Skin: Normal Color, Warm/Dry Lymphatic: No Adenopathy Results/Procedures Lab Laboratory Tests 03/18/18 06:15 Patient resulted labs reviewed. Assessment/Plan Assessment and Plan Assess & Plan/Chief Complaint Assessment: Acute pancreatitis Abdominal pain Diabetes mellitus on Victoza Hypertension Hyperlipidemia Depression Plan: CLD Check labs in am Stop Victoza which is likely the cause of the pancreatitis Diagnosis/Problems Diagnosis/Problems (1) Pancreatitis Status: Acute Qualifiers: Chronicity: acute Pancreatitis type: unspecified pancreatitis type Acute pancreatitis complication: unspecified Qualified Codes: K85.90 - Acute pancreatitis without necrosis or infection, unspecified Clinical Quality Measures DVT/VTE Risk/Contraindication: Risk Factor Score Per Nursin RFS Level Per Nursing on Admit: 2=Moderate TRISTAN LIM MEDICAL STUDENT 03/18/18 1144: Subjective HPI/CC On Admission CC: Abdominal pain HPI: This is a 67 yo white female who presented to the [place] ER for abdominal pain, was found to have acute pancreatitis, and was transferred to [facility] to Dr. Chambers's service for evaluation. The lipase has trended down. Dr. Chambers ordered an US which was negative for acute cholecystitis or obstructing gallstone. Pt denies nausea but is still having some pain. While the pt has been in the hospital, Dr. Carroll was consulted for help in identifying possible etiology. Medications have been reviewed. Subjective/Events-last exam Pt reports pain is improved, denies n/v or fevers Pt reports she has been on Victoza for 2 years Review of Systems General: No Chills, No Fatigue HEENT: No Head Aches Pulmonary: No Dyspnea, No Cough Cardiovascular: No: Chest Pain Gastrointestinal: Abdominal Pain; No: Nausea, Vomiting Genitourinary: No Dysuria Objective Exam General Appearance: No Apparent Distress, WD/WN HEENT: PERRL/EOMI, Normal ENT Inspection Neck: Non Tender, Supple Respiratory: Chest Non Tender, Lungs Clear, Normal Breath Sounds, No Accessory Muscle Use, No Respiratory Distress Cardiovascular: Regular Rate, Rhythm, No Edema, No Gallop, No Murmur, Normal Peripheral Pulses Gastrointestinal: Normal Bowel Sounds, No Organomegaly, Non Tender, Soft Rectal: Deferred Back: Normal Inspection, No CVA Tenderness Extremity: Non Tender, No Calf Tenderness Neurologic/Psychiatric: Alert, Oriented x3, No Motor/Sensory Deficits, Normal Mood/Affect Skin: Normal Color, Warm/Dry Lymphatic: No Adenopathy Results/Procedures Imaging: Reviewed Imaging Films, Reviewed Imaging Report Meds Active Scripts Medications Dose Route/Sig Max Daily Dose Days Date Category Victoza 3-Brett (Liraglutide) 0.6 Mg/0.1 Ml Pen.injctr 1.8 Mg SQ HS 03/17/18 Reported Gemfibrozil 600 Mg Tablet 600 Mg PO BID 03/17/18 Reported Trazodone HCl 50 Mg Tablet 75 Mg PO HS 03/17/18 Reported Estrace Tablet (Estradiol) 1 Mg Tablet 1 Mg PO DAILY 03/17/18 Reported Lexapro (Escitalopram Oxalate) 20 Mg Tablet 20 Mg PO DAILY 03/17/18 Reported Caltrate 600 + D Tablet (Calcium Carbonate/Vitamin D3) 1 Each Tablet 1 Each PO BID 03/17/18 Reported Lisinopril-Hctz 20-25 mg Tab (Lisinopril/Hydrochlorothiazide) 1 Each Tablet 1 Each PO DAILY 03/17/18 Reported Lisinopril 20 Mg Tablet 20 Mg PO HS 03/17/18 Reported Assessment/Plan Assessment and Plan Assess & Plan/Chief Complaint Assessment: Acute pancreatitis most likely due to medication reaction, Victoza Abdominal pain DM Hypertension Hyperlipidemia, Triglycerides measured here in 200s, not likely the etiology of acute pancreatitis Depression Plan: Stop Victoza Hold Estrace while hospitalized Continue the rest of home meds Monitor sugars Pain control and diet advancement per Dr. Chambers's recommendations Diagnosis/Problems Diagnosis/Problems (1) Pancreatitis Status: Acute Qualifiers: Chronicity: acute Pancreatitis type: unspecified pancreatitis type Acute pancreatitis complication: unspecified Qualified Codes: K85.90 - Acute pancreatitis without necrosis or infection, unspecified (2) Hypertension Status: Chronic Qualifiers: Hypertension type: essential hypertension Qualified Codes: I10 - Essential (primary) hypertension (3) Diabetes mellitus Status: Chronic (4) Hyperlipidemia Status: Chronic BALA CARROLL DO Mar 18, 2018 09:34 TRISTAN LIM MEDICAL STUDENT Mar 18, 2018 11:44
[2018-03-18] MEDS ORDERED: amLODIPine 5 MG (NORVASC) TAB PO NR (10:15)
--- NOTE | 2018-03-18 15:16 | NUR ---
Pastoral care visit, offered support, expressed department availability and services.
[2018-03-18 16:00] VITALS: BP 161/88
[2018-03-18] MEDS: traZODone 150 MG (DESYREL) TABLET PO SCH (21:08)
[2018-03-18] MEDS: lisINopril 20 MG (PRINIVIL) TABLET PO SCH (21:08)
--- NOTE | 2018-03-18 21:54 | Progress Note ---
Subjective Date Seen by a Provider: Mar 18, 2018 Time Seen by a Provider: 21:51 Subjective/Events-last exam patient feeling better today. She is tolerating liquids. Having occasional pain but very minimal. Patient denies any nausea vomiting fever sweats chills shortness of breath or chest pain. Labs continuing to improve. Objective Exam Vital Signs Date Time Temp Pulse Resp B/P (MAP) Pulse Ox O2 Delivery O2 Flow Rate FiO2 03/18/18 16:00 98.4 60 19 161/88 (112) 98 Room Air 03/18/18 08:00 97.3 53 20 162/70 (100) 94 Room Air 03/18/18 08:00 Room Air 03/18/18 04:00 97.4 70 18 130/64 (86) 92 Room Air 03/18/18 00:00 98.2 64 18 144/69 (94) 93 Room Air I & O 03/18/18 07:00 Intake Total 2100 ml Output Total 1300 ml Balance 800 ml Capillary Refill : General Appearance: No Apparent Distress HEENT: PERRL/EOMI, Normal ENT Inspection Neck: Non Tender, Supple Respiratory: Chest Non Tender, No Accessory Muscle Use, No Respiratory Distress Cardiovascular: Regular Rate, Rhythm Gastrointestinal: soft (no significant tenderness on palpation) Extremity: Non Tender, No Calf Tenderness Neurologic/Psychiatric: Alert, Oriented x3, No Motor/Sensory Deficits, Normal Mood/Affect, detail manager II-XII Norm as Tested Skin: Normal Color, Warm/Dry Lymphatic: No Adenopathy Results Lab Laboratory Tests 03/18/18 05:32: Glucometer 127H 03/18/18 06:15: White Blood Count 6.9, Red Blood Count 3.24L, Hemoglobin 9.9L, Hematocrit 28L, Mean Corpuscular Volume 87, Mean Corpuscular Hemoglobin 31, Mean Corpuscular Hemoglobin Concent 35, Red Cell Distribution Width 12.1, Platelet Count 263, Mean Platelet Volume 11.4H, Sodium Level 138, Potassium Level 3.3L, Chloride Level 108H, Carbon Dioxide Level 18L, Anion Gap 12, Blood Urea Nitrogen 12, Creatinine 0.68, Estimat Glomerular Filtration Rate > 60, BUN/Creatinine Ratio 18, Glucose Level 126H, Calcium Level 8.2L, Corrected Calcium 8.8, Total Bilirubin 0.4, Aspartate Amino Transf (AST/SGOT) 48H, Alanine Aminotransferase ( ALT/SGPT) 37, Alkaline Phosphatase 109, Total Protein 5.9L, Albumin 3.2, Triglycerides Level 213H, Cholesterol Level 209H, Amylase Level 139H, Lipase 381H 03/18/18 12:31: Glucometer 274H 03/18/18 18:09: Glucometer 240H Assessment/Plan Assessment/Plan Assessment/Plan epigastric abdominal pain pancreatitis patient Started on clears morning and tolerating IV hydration gallbladder ultrasound demonstrating no evidence of acute cholecystitis cholelithiasis. I feel that the pancreatitis is most likely due to Victoza. If patient continues to have no pain will advance diet tomorrow and likely home soon Clinical Quality Measures DVT/VTE Risk/Contraindication: Risk Factor Score Per Nursin RFS Level Per Nursing on Admit: 2=Moderate JACKELYN SALAZAR DO Mar 18, 2018 21:54
[2018-03-19] VITALS: BP 121/67
[2018-03-19] MEDS: NS IV 1000 ML 1,000 ML IV SCH ×3 (02:15→18:14)
[2018-03-19] MEDS: PIPERACILLIN SODIUM/TAZOBACTAM 4.5 GM in NS (IVPB) 100 ML IV SCH ×3 (02:41→18:43)
[2018-03-19] MEDS: diphenhydrAMINE 50 MG/ML INJ (BENADRYL) IVP SCH ×2 (02:42→20:56)
[2018-03-19] MEDS: fentaNYL INJECTION 100 MCG/2 ML AMP IVP PRN ×2 (04:01→08:11)
[2018-03-19 06:25] LABS: BASOPHILS % (AUTO) 0 % (0-10); EOSINOPHILS # (AUTO) 0.2 10^3/uL (0.0-0.3); EOSINOPHILS % (AUTO) 2 % (0-10); HEMATOCRIT 29 % (35-52); HEMOGLOBIN 10.2 G/DL (11.5-16.0); LYMPHOCYTES # (AUTO) 1.5 X 10^3 (1.0-4.0); LYMPHOCYTES % (AUTO) 20 % (12-44); MEAN CORPUSCULAR HEMOGLOBIN 30 PG (25-34); MEAN CORPUSCULAR HGB CONC 35 G/DL (32-36); MEAN CORPUSCULAR VOLUME 87 FL (80-99); MEAN PLATELET VOLUME 11.6 FL (7.4-10.4); MONOCYTES # (AUTO) 0.5 X 10^3 (0.0-1.0); MONOCYTES % (AUTO) 7 % (0-12); NEUTROPHILS # (AUTO) 5.2 X 10^3 (1.8-7.8); NEUTROPHILS % (AUTO) 70 % (42-75); PLATELET COUNT 265 10^3/uL (130-400); RED CELL DISTRIBUTION WIDTH 12.3 % (10.0-14.5); WHITE BLOOD COUNT 7.4 10^3/uL (4.3-11.0)
[2018-03-19 07:05] LABS: ALANINE AMINOTRANSFERASE 33 U/L (0-55); ALBUMIN 3.2 GM/DL (3.2-4.5); ALKALINE PHOSPHATASE 101 U/L (40-136); AMYLASE 59 U/L (25-125); BILIRUBIN,TOTAL 0.4 MG/DL (0.1-1.0); BUN/CREATININE RATIO 10; CALCIUM 8.2 MG/DL (8.5-10.1); CARBON DIOXIDE 21 MMOL/L (21-32); CHLORIDE 111 MMOL/L (98-107); CREATININE SERUM 0.71 MG/DL (0.60-1.30); GFR ESTIMATED > 60; GLUCOSE 130 MG/DL (70-105); LIPASE 131 U/L (8-78); POTASSIUM 3.1 MMOL/L (3.6-5.0); SODIUM 140 MMOL/L (135-145); TOTAL PROTEIN 5.8 GM/DL (6.4-8.2)
[2018-03-19 08:00] VITALS: BP 197/88
[2018-03-19] MEDS: amLODIPine 5 MG (NORVASC) TAB PO SCH (08:27)
[2018-03-19] MEDS ORDERED: AMLO5TAB9 PO (09:46)
[2018-03-19] MEDS ORDERED: ACHD5005 PO (09:46)
--- NOTE | 2018-03-19 09:48 | Discharge Summary-Hospitalist ---
BALA CARROLL DO 03/19/18 0948: Diagnosis/Chief Complaint Date of Admission Mar 16, 2018 at 20:14 Date of Discharge Discharge Date: Mar 19, 2018 Discharge Diagnosis (1) Pancreatitis Status: Resolved (2) Hypertension Status: Chronic (3) Diabetes mellitus Status: Chronic (4) Hyperlipidemia Status: Chronic Discharge Summary Discharge Physical Exam Allergies: Uncoded Allergies: CODIENE (Allergy, Unknown, 03/16/18) Vitals & I&Os Vital Signs Date Time Temp Pulse Resp B/P (MAP) Pulse Ox O2 Delivery O2 Flow Rate FiO2 03/19/18 16:15 100.1 104 24 168/76 (106) 95 Room Air General Appearance: No Apparent Distress, WD/WN, Chronically ill HEENT: PERRL/EOMI, Normal ENT Inspection Respiratory: Chest Non Tender, No Accessory Muscle Use, No Respiratory Distress Cardiovascular: Regular Rate, Rhythm Gastrointestinal: Normal Bowel Sounds, No Organomegaly, No Pulsatile Mass, Non Tender, Soft, Tenderness (epigastric region) Extremity: Non Tender, No Calf Tenderness Skin: Normal Color, Warm/Dry Neurologic/Psychiatric: Alert, Oriented x3, No Motor/Sensory Deficits, Normal Mood/Affect, 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 Dr. Chambers pursued gallbladder ultrasound which was normal and HIDA scan which was normal. Victoza was assessed to be the cause of the pancreatitis and will be discontinued and not restarted again in the future. Overall patient improved and was able to be discharged per Dr. Chambers on 03/20/18. Labs (last 24 hrs) Laboratory Tests 03/19/18 02:23: Glucometer 131H 03/19/18 05:35: White Blood Count 7.4, Red Blood Count 3.38L, Hemoglobin 10.2L, Hematocrit 29L, Mean Corpuscular Volume 87, Mean Corpuscular Hemoglobin 30, Mean Corpuscular Hemoglobin Concent 35, Red Cell Distribution Width 12.3, Platelet Count 265, Mean Platelet Volume 11.6H, Neutrophils (%) (Auto) 70, Lymphocytes (%) (Auto) 20 , Monocytes (%) (Auto) 7, Eosinophils (%) (Auto) 2, Basophils (%) (Auto) 0, Neutrophils # (Auto) 5.2, Lymphocytes # (Auto) 1.5, Monocytes # (Auto) 0.5, Eosinophils # (Auto) 0.2, Basophils # (Auto) 0.0, Sodium Level 140, Potassium Level 3.1L, Chloride Level 111H, Carbon Dioxide Level 21, Anion Gap 8, Blood Urea Nitrogen 7, Creatinine 0.71, Estimat Glomerular Filtration Rate > 60, BUN/ Creatinine Ratio 10, Glucose Level 130H, Calcium Level 8.2L, Corrected Calcium 8.8, Total Bilirubin 0.4, Aspartate Amino Transf (AST/SGOT) 41H, Alanine Aminotransferase (ALT/SGPT) 33, Alkaline Phosphatase 101, Total Protein 5.8L, Albumin 3.2, Amylase Level 59, Lipase 131H 03/19/18 06:23: Glucometer 137H 03/19/18 12:26: Glucometer 132H 03/19/18 18:58: Glucometer 205H Patient resulted labs reviewed. Pending Labs Laboratory Tests 03/19/18 12:26: Glucometer 132 03/19/18 18:58: Glucometer 205 Imaging: Reviewed Imaging Films, Reviewed Imaging Report Discussion & Recommendations Discharge Planning: <30 minutes discharge planning Discharge Home Medications: Active Scripts Active Hydrocodone/Acetaminophen 5/325mg Tablet (Acetaminophen/Hydrocodone Bitart) 1 Tab Tab 1 Tab PO Q4-6HR PRN MDD 10 Amlodipine Besylate 5 Mg Tablet 5 Mg PO DAILY Reported Victoza 3-Brett (Liraglutide) 0.6 Mg/0.1 Ml Pen.injctr 1.8 Mg SQ HS Gemfibrozil 600 Mg Tablet 600 Mg PO BID Trazodone HCl 50 Mg Tablet 75 Mg PO HS Estrace Tablet (Estradiol) 1 Mg Tablet 1 Mg PO DAILY Lexapro (Escitalopram Oxalate) 20 Mg Tablet 20 Mg PO DAILY Caltrate 600 + D Tablet (Calcium Carbonate/Vitamin D3) 1 Each Tablet 1 Each PO BID Lisinopril-Hctz 20-25 mg Tab (Lisinopril/Hydrochlorothiazide) 1 Each Tablet 1 Each PO DAILY Lisinopril 20 Mg Tablet 20 Mg PO HS Instructions to patient/family Please see electronic discharge instructions given to patient. Clinical Quality Measures DVT/VTE Risk/Contraindication: Risk Factor Score Per Nursin RFS Level Per Nursing on Admit: 2=Moderate TRISTAN LIM MEDICAL STUDENT 03/19/18 1753: Diagnosis/Chief Complaint Discharge Date: Mar 20, 2018 Admission Diagnosis Abdominal pain Discharge Diagnosis Acute pancreatitis due to medication (1) Drug-induced acute pancreatitis (2) Hypertension Status: Chronic (3) Hyperlipidemia Status: Chronic (4) Diabetes mellitus Status: Chronic Discharge Summary Procedures/Consulations General surgery was consulted Discharge Physical Exam Allergies: Uncoded Allergies: CODIENE (Allergy, Unknown, 03/16/18) General Appearance: No Apparent Distress, WD/WN HEENT: PERRL/EOMI, Normal ENT Inspection Respiratory: Chest Non Tender, Lungs Clear, Normal Breath Sounds, No Respiratory Distress Cardiovascular: Regular Rate, Rhythm, No Murmur Gastrointestinal: Normal Bowel Sounds, Non Tender, Soft Extremity: Non Tender, No Calf Tenderness Skin: Normal Color, Warm/Dry Neurologic/Psychiatric: Alert, Oriented x3, No Motor/Sensory Deficits, Normal Mood/Affect Hospital Course Was the Problem List Reviewed?: Yes Hospital course: This is a 67 yo white female who presented to the [place] ER for abdominal pain , was found to have acute pancreatitis, and was transferred to [facility] to Dr. Chambers's service for evaluation. The lipase has trended down appropriately. IV Zosyn was given. Dr. Chambers ordered an US which was negative for acute cholecystitis or obstructing gallstone. Pt denies nausea but is still having some pain. Hospitalist service was consulted for help in identifying possible etiology. Medications were reviewed and the most likely culprit was Victoza, which the pt reported she had been taking for two years. Dr. Chambers also ordered a HIDA scan w/ EF to further rule out gallbladder pathology as etiology of pancreatitis. The HIDA scan and EF were normal. The pt will be discharged home and instructed to f/u w/ PCP. Imaging: Reviewed Imaging Films, Reviewed Imaging Report Problem Qualifiers (1) Pancreatitis: Chronicity: acute Pancreatitis type: unspecified pancreatitis type Acute pancreatitis complication: unspecified Qualified Codes: K85.90 - Acute pancreatitis without necrosis or infection, unspecified (2) Hypertension: Hypertension type: essential hypertension Qualified Codes: I10 - Essential ( primary) hypertension (3) Diabetes mellitus: Diabetes mellitus type: type 2 Diabetes mellitus terminal superintendent insulin use: without terminal superintendent use Diabetes mellitus complication status: without complication Qualified Codes: E11.9 - Type 2 diabetes mellitus without complications (4) Hyperlipidemia: Hyperlipidemia type: mixed hyperlipidemia Qualified Codes: E78.2 - Mixed hyperlipidemia BALA CARROLL DO Mar 19, 2018 09:48 TRISTAN LIM MEDICAL STUDENT Mar 19, 2018 17:53
--- NOTE | 2018-03-19 16:05 | Progress Note ---
Subjective Date Seen by a Provider: Mar 19, 2018 Time Seen by a Provider: 07:55 Subjective/Events-last exam Patient states pain better. took some pain medication thought. tolerating liquids. denies n/v fever sweats chills shortness of breath or chest pain. Objective Exam Vital Signs Date Time Temp Pulse Resp B/P (MAP) Pulse Ox O2 Delivery O2 Flow Rate FiO2 03/19/18 08:00 Room Air 03/19/18 08:00 97.3 79 18 197/88 (124) 94 Room Air 03/19/18 00:00 96.9 80 19 121/67 (85) 92 Room Air 03/18/18 20:00 Room Air I & O 03/19/18 07:00 Intake Total 2978 ml Balance 2978 ml Capillary Refill : General Appearance: No Apparent Distress HEENT: PERRL/EOMI, Normal ENT Inspection Neck: Non Tender, Supple Respiratory: Chest Non Tender, No Accessory Muscle Use, No Respiratory Distress Cardiovascular: Regular Rate, Rhythm Gastrointestinal: soft (some tenderness epigastric) Extremity: Non Tender, No Calf Tenderness Neurologic/Psychiatric: Alert, Oriented x3, No Motor/Sensory Deficits, Normal Mood/Affect, 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 Skin: Normal Color, Warm/Dry Lymphatic: No Adenopathy Results Lab Laboratory Tests 03/18/18 18:09: Glucometer 240H 03/19/18 02:23: Glucometer 131H 03/19/18 05:35: White Blood Count 7.4, Red Blood Count 3.38L, Hemoglobin 10.2L, Hematocrit 29L, Mean Corpuscular Volume 87, Mean Corpuscular Hemoglobin 30, Mean Corpuscular Hemoglobin Concent 35, Red Cell Distribution Width 12.3, Platelet Count 265, Mean Platelet Volume 11.6H, Neutrophils (%) (Auto) 70, Lymphocytes (%) (Auto) 20 , Monocytes (%) (Auto) 7, Eosinophils (%) (Auto) 2, Basophils (%) (Auto) 0, Neutrophils # (Auto) 5.2, Lymphocytes # (Auto) 1.5, Monocytes # (Auto) 0.5, Eosinophils # (Auto) 0.2, Basophils # (Auto) 0.0, Sodium Level 140, Potassium Level 3.1L, Chloride Level 111H, Carbon Dioxide Level 21, Anion Gap 8, Blood Urea Nitrogen 7, Creatinine 0.71, Estimat Glomerular Filtration Rate > 60, BUN/ Creatinine Ratio 10, Glucose Level 130H, Calcium Level 8.2L, Corrected Calcium 8.8, Total Bilirubin 0.4, Aspartate Amino Transf (AST/SGOT) 41H, Alanine Aminotransferase (ALT/SGPT) 33, Alkaline Phosphatase 101, Total Protein 5.8L, Albumin 3.2, Amylase Level 59, Lipase 131H 03/19/18 06:23: Glucometer 137H 03/19/18 12:26: Glucometer 132H Assessment/Plan Assessment/Plan Assessment/Plan epigastric abdominal pain pancreatitis still with some pain and had to take pain shot plan npo get HIDA scan today to rule out any biliary obstruction or cholecystitis if normal likely plan on home today or tomorrow Clinical Quality Measures DVT/VTE Risk/Contraindication: Risk Factor Score Per Nursin RFS Level Per Nursing on Admit: 2=Moderate JACKELYN SALAZAR DO Mar 19, 2018 16:05
[2018-03-19 16:15] VITALS: BP 168/76
--- NOTE | 2018-03-19 17:19 | Diagnostic Imaging Report ---
INDICATION: Epigastric pain. EXAMINATION: Patient was administered 5.3 mCi technetium 99m Choletec intravenously and imaging ov the abdomen was performed. At 60 minutes patient ingested 8 ounces of Ensure and gallbladder ejection fraction was calculated. FINDINGS: There is homogeneous uptake of activity by the liver. Prompt excretion of activity into the common duct and gallbladder is seen. There is normal passage of activity into the small bowel. Gallbladder ejection fraction is 87%. IMPRESSION: Normal HIDA scan and gallbladder ejection fraction. Dictated by: Dictated on workstation # [id number]
[2018-03-19] MEDS: traZODone 150 MG (DESYREL) TABLET PO SCH (20:56)
[2018-03-19] MEDS: lisINopril 20 MG (PRINIVIL) TABLET PO SCH (20:56)
[2018-03-19 23:51] VITALS: BP 119/77
[2018-03-20] MEDS: PIPERACILLIN SODIUM/TAZOBACTAM 4.5 GM in NS (IVPB) 100 ML IV SCH ×2 (02:47→10:41)
[2018-03-20] MEDS: NS IV 1000 ML 1,000 ML IV SCH ×2 (05:43→10:41)
[2018-03-20 08:00] VITALS: BP 149/70
[2018-03-20] MEDS: amLODIPine 5 MG (NORVASC) TAB PO SCH (08:15)
[2018-03-20] MEDS ORDERED: GLYB1.253 PO (10:12)
[2018-03-20] MEDS ORDERED: LEVO500T2 PO (10:12)
--- NOTE | 2018-03-20 14:31 | Progress Note ---
Subjective Date Seen by a Provider: Mar 20, 2018 Time Seen by a Provider: 08:11 Subjective/Events-last exam Patient not having any pain. Feeling better. Tolerating diet. Denies n/v fever sweats chills shortness of breath or chest pain. Objective Exam Vital Signs Date Time Temp Pulse Resp B/P (MAP) Pulse Ox O2 Delivery O2 Flow Rate FiO2 03/20/18 08:00 Room Air 03/20/18 08:00 98.6 61 18 149/70 (96) 96 Room Air 03/19/18 23:51 98.2 86 20 119/77 (91) 97 Room Air 03/19/18 20:00 Room Air 03/19/18 16:15 100.1 104 24 168/76 (106) 95 Room Air I & O 03/20/18 07:00 Intake Total 966 ml Balance 966 ml Capillary Refill : Less Than 3 Seconds General Appearance: No Apparent Distress, WD/WN HEENT: PERRL/EOMI, Normal ENT Inspection Neck: Non Tender, Supple Respiratory: Chest Non Tender, No Accessory Muscle Use, No Respiratory Distress Cardiovascular: Regular Rate, Rhythm Gastrointestinal: soft (nontender, no guarding or rebounding) Extremity: Non Tender, No Calf Tenderness Neurologic/Psychiatric: Alert, Oriented x3, No Motor/Sensory Deficits, Normal Mood/Affect, 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 after reviewing ct, u/s and hida feel patient would benefit from elective cholecystectomy. Patient was discussed risks and benefits of laparoscopic cholecystectomy intraoperative cholangiogram all other indicated procedures and patient agrees with outpatient procedure Saturday. patient okay to dc home today and will keep on Levaquin orally. Victoza going to be discontinued. Instructed to avoid dairy, and fatty foods. Clinical Quality Measures DVT/VTE Risk/Contraindication: Risk Factor Score Per Nursin RFS Level Per Nursing on Admit: 2=Moderate JACKELYN SALAZAR DO Mar 20, 2018 14:31
--- NOTE | 2018-03-20 14:32 | NUR ---
RX AND INST AND VERBALIZED UNDERSTANDING. PRE-OP TO CALL TOMORROW REGARDING SURGERY ON SATURDAY.
== END 2018-03-20 14:34 | disposition home or self-care (01) | DRG 440 ==
LOC: 4TH 20:14
PROVIDERS: ADMIT Surgery; ATTEND Surgery
DX: K85.30 Drug induced acute pancreatitis without necrosis or infection (principal); K82.8 Other specified diseases of gallbladder; E11.9 Type 2 diabetes mellitus without complications; I10 Essential (primary) hypertension; E78.2 Mixed hyperlipidemia; F41.9 Anxiety disorder, unspecified; F32.9 Major depressive disorder, single episode, unspecified; K76.0 Fatty (change of) liver, not elsewhere classified; T38.3X5A Adverse effect of insulin and oral hypoglycemic [antidiabetic] drugs, initial encounter; Z79.84 Long term (current) use of oral hypoglycemic drugs
CPT/HCPCS: 36415; 76705; 78227; 80053; 82150; 82465; 82962; 83690; 84478; 85025; 85027

== ENCOUNTER 2018-03-21 05:36 | Outpatient (CLI) | payer MEDICARE ==
[~2018-03-21] VITALS: Ht 160 cm; Wt 83.7 kg
[~2018-03-21 05:36] MED LIST: ACHD5005 PO; AMLO5TAB9 PO; CALC1TAB PO; ESCI20TA PO; ESTR1TAB27 PO; GEMF600T8 PO; GLYB1.253 PO; LEVO500T2 PO; LIRA0.6P3 SQ; LISI-552 PO; LISI1TAB10 PO; TRAZ-189 PO
[2018-03-24] MEDS ORDERED: ACHD5005 PO (12:29)
== END 2018-03-21 11:04 | disposition home or self-care (01) ==
LOC: PREOP 05:36
PROVIDERS: ATTEND Surgery
DX: Z01.818 Encounter for other preprocedural examination (principal)

== ENCOUNTER 2018-03-24 09:58 | Day surgery (SDC) | payer MEDICARE ==
[~2018-03-24] VITALS: Ht 160 cm; Wt 83.7 kg
--- OUTSIDE RECORDS SUMMARY | 2018-03-24 10:05 | XMS REPORT | Continuity of Care Document ---
Author Author [facility] Address Unknown Phone Unavailable Allergies Active Description Code Type Severity Reaction Onset Reported/Identified Relationship to Patient Clinical Status Yes CODIENE CODIENE Unknown N/A 03/16/2018 Yes No Known Drug Allergies [id number] Drug Allergy Unknown N/A 03/16/2018 Medications There is no data. Problems Date Dx Coded Attending Type Code Diagnosis Diagnosed By 06/07/2009 EFLIBERTO VEGA APRN 278.02 OVERWEIGHT 06/07/2009 FELIBERTO VEGA [...] UNSPEC 06/07/2009 401.1 HYPERTENSION, BENIGN ESSENTIAL 06/07/2009 ANA LAURA OWEN DO 278.02 OVERWEIGHT 06/07/2009 ANA LAURA OWEN DO 300.00 ANXIETY UNSPEC 06/07/2009 OWEN DO, ANA LAURA K 401.1 HYPERTENSION, BENIGN ESSENTIAL 06/07/2009 OWEN DO, ANA LAURA K 278.02 OVERWEIGHT 06/07/2009 OWEN DO, ANA LAURA K 300.00 ANXIETY UNSPEC 06/07/2009 OWEN DO, ANA LAURA K 401.1 HYPERTENSION, BENIGN ESSENTIAL 06/07/2009 VEGA VENDOR ANALYST, FELIBERTO R 278.02 OVERWEIGHT 06/07/2009 VEGA VENDOR ANALYST, FELIBERTO R 300.00 ANXIETY UNSPEC 06/07/2009 VEGA VENDOR ANALYST, FELIBERTO R 401.1 HYPERTENSION, BENIGN ESSENTIAL 06/07/2009 OWEN DO, ANA LAURA K 278.02 OVERWEIGHT 06/07/2009 OWEN DO, ANA LAURA K 300.00 ANXIETY UNSPEC 06/07/2009 OWEN DO, ANA LAURA K 401.1 HYPERTENSION, BENIGN ESSENTIAL 06/07/2009 VEGA VENDOR ANALYST, FELIBERTO R 278.02 OVERWEIGHT 06/07/2009 VEGA VENDOR ANALYST, FELIBERTO R 300.00 ANXIETY UNSPEC 06/07/2009 VEGA VENDOR ANALYST, FELIBERTO R 401.1 HYPERTENSION, BENIGN ESSENTIAL 06/07/2009 VEGA VENDOR ANALYST, FELIBERTO R 278.02 OVERWEIGHT 06/07/2009 VEGA VENDOR ANALYST, FELIBERTO R 300.00 ANXIETY UNSPEC 06/07/2009 VEGA VENDOR ANALYST, FELIBERTO R 401.1 HYPERTENSION, BENIGN ESSENTIAL 06/07/2009 OWEN DO, ANA LAURA K 278.02 OVERWEIGHT 06/07/2009 OWEN DO, ANA LAURA K 300.00 ANXIETY UNSPEC 06/07/2009 OWEN DO, ANA LAURA K 401.1 HYPERTENSION, BENIGN ESSENTIAL 06/07/2009 OWEN DO, ANA LAURA K 278.02 OVERWEIGHT 06/07/2009 OWEN DO, ANA LAURA K 300.00 ANXIETY UNSPEC 06/07/2009 OWEN DO, ANA LAURA K 401.1 HYPERTENSION, BENIGN ESSENTIAL 06/07/2009 VEGA VENDOR ANALYST, FELIBERTO R 278.02 OVERWEIGHT 06/07/2009 VEGA VENDOR ANALYST, FELIBERTO R 300.00 ANXIETY UNSPEC 06/07/2009 VEGA VENDOR ANALYST, FELIBERTO R 401.1 HYPERTENSION, BENIGN ESSENTIAL 06/07/2009 OWEN DO, ANA LAURA K 278.02 OVERWEIGHT 06/07/2009 OWEN DO, ANA LUARA K 300.00 ANXIETY UNSPEC 06/07/2009 OWEN DO, ANA LAURA K 401.1 HYPERTENSION, BENIGN ESSENTIAL 06/07/2009 VEGA VENDOR ANALYST, FELIBERTO R 278.02 OVERWEIGHT 06/07/2009 FELIBERTO VEGA APRN 300.00 ANXIETY UNSPEC 06/07/2009 FELIBERTO VEGA APRN 401.1 HYPERTENSION, BENIGN ESSENTIAL 06/07/2009 OWEN DO, ANA LAURA K 278.02 OVERWEIGHT 06/07/2009 OWEN DO, ANA LAURA K 300.00 ANXIETY UNSPEC 06/07/2009 OWEN DO, ANA LAURA K 401.1 HYPERTENSION, BENIGN ESSENTIAL 06/07/2009 OWEN DO, ANA LAURA K 278.02 OVERWEIGHT 06/07/2009 OWEN DO, ANA LAURA K 300.00 ANXIETY UNSPEC 06/07/2009 OWEN DO, ANA LAURA K 401.1 HYPERTENSION, BENIGN ESSENTIAL 06/21/2009 FELIBERTO VEGA APRN 401.9 UNSPECIFIED ESSENTIAL HYPERTENSION 06/21/2009 FELIBERTO VEGA APRN 521.00 DENTAL CARIES, UNSPECIFIED 06/21/2009 401.9 UNSPECIFIED ESSENTIAL HYPERTENSION 06/21/2009 521.00 DENTAL CARIES , UNSPECIFIED 06/21/2009 FELIBERTO VEGA APRN 401.9 UNSPECIFIED ESSENTIAL HYPERTENSION 06/21/2009 FELIBERTO VEGA APRN 521.00 DENTAL CARIES, UNSPECIFIED 06/21/2009 401.9 UNSPECIFIED [...] LAURA K 521.00 DENTAL CARIES, UNSPECIFIED 06/21/2009 FELIBERTO VEGA APRN 401.9 UNSPECIFIED ESSENTIAL HYPERTENSION 06/21/2009 FELIBERTO VEGA APRN 521.00 DENTAL CARIES, UNSPECIFIED 06/21/2009 OWEN DO, ANA LAURA K 401.9 UNSPECIFIED ESSENTIAL HYPERTENSION 06/21/2009 OWEN DO, ANA LAURA K 521.00 DENTAL CARIES, UNSPECIFIED 06/21/2009 VEGA VENDOR ANALYST, FELIBERTO R 401.9 UNSPECIFIED ESSENTIAL HYPERTENSION 06/21/2009 VEGA VENDOR ANALYST, FELIBERTO R 521.00 DENTAL CARIES, UNSPECIFIED 06/21/2009 VEGA VENDOR ANALYST, FELIBERTO R 401.9 UNSPECIFIED ESSENTIAL HYPERTENSION 06/21/2009 VEGA VENDOR ANALYST, FELIBERTO R 521.00 DENTAL CARIES, UNSPECIFIED 06/21/2009 OWEN DO, ANA LAURA K 401.9 UNSPECIFIED ESSENTIAL HYPERTENSION 06/21/2009 OWEN DO, ANA LAURA K 521.00 DENTAL CARIES, UNSPECIFIED 06/21/2009 OWNE DO, ANA LAURA K 401.9 UNSPECIFIED ESSENTIAL HYPERTENSION 06/21/2009 OWEN DO, ANA LAURA K 521.00 DENTAL CARIES, UNSPECIFIED 06/21/2009 VEGA VENDOR ANALYST, FELIBERTO R 401.9 UNSPECIFIED ESSENTIAL HYPERTENSION 06/21/2009 VEGA VENDOR ANALYST, FELIBERTO R 521.00 DENTAL CARIES, UNSPECIFIED 06/21/2009 OWEN DO, ANA LAURA K 401.9 UNSPECIFIED ESSENTIAL HYPERTENSION 06/21/2009 OWEN DO, ANA LAURA K 521.00 DENTAL CARIES, UNSPECIFIED 06/21/2009 VEGA VENDOR ANALYST, FELIBERTO R 401.9 UNSPECIFIED ESSENTIAL HYPERTENSION 06/21/2009 VEGA VENDOR ANALYST, FELIBERTO R 521.00 DENTAL CARIES, UNSPECIFIED 06/21/2009 OWEN DO, ANA LAURA K 401.9 UNSPECIFIED ESSENTIAL HYPERTENSION 06/21/2009 OWEN DO, ANA LAURA K 521.00 DENTAL CARIES, UNSPECIFIED 06/21/2009 OWEN DO, ANA LAURA K 401.9 UNSPECIFIED ESSENTIAL HYPERTENSION 06/21/2009 OWEN DO, ANA LAURA K 521.00 DENTAL CARIES, UNSPECIFIED 07/05/2009 VEGA VENDOR ANALYSTFELIBERTO 242.90 HYPERTHYROIDISM NOS 07/05/2009 242.90 HYPERTHYROIDISM NOS 07/05/2009 VEGA VENDOR ANALYSTFELIBERTO 242.90 HYPERTHYROIDISM NOS 07/05/2009 242.90 HYPERTHYROIDISM NOS 07/05/2009 242.90 HYPERTHYROIDISM NOS 07/05/2009 242.90 HYPERTHYROIDISM NOS 07/05/2009 242.90 HYPERTHYROIDISM NOS 07/05/2009 242.90 HYPERTHYROIDISM NOS 07/05/2009 OWEN DO, ANA LAURA K 242.90 HYPERTHYROIDISM NOS 07/05/2009 OWEN DO, ANA LAURA K 242.90 HYPERTHYROIDISM NOS 07/05/2009 SILVIA LIGHTFELIBERTO Phelps R 242.90 HYPERTHYROIDISM NOS 07/05/2009 OWEN DO, ANA LAURA K 242.90 HYPERTHYROIDISM NOS 07/05/2009 SILVIA LIGHTFELIBERTO Phelps R 242.90 HYPERTHYROIDISM NOS 07/05/2009 VEGA FELIBERTO STEWART R 242.90 HYPERTHYROIDISM NOS 07/05/2009 OWEN DO, ANA LAURA K 242.90 HYPERTHYROIDISM NOS 07/05/2009 OWEN DO, ANA LAURA K 242.90 HYPERTHYROIDISM NOS 07/05/2009 VEGA VENDOR ANALYST, FELIBERTO R 242.90 HYPERTHYROIDISM NOS 07/05/2009 OWEN DO, ANA LAURA K 242.90 HYPERTHYROIDISM NOS 07/05/2009 VEGA VENDOR ANALYST, FELIBERTO R 242.90 HYPERTHYROIDISM NOS 07/05/2009 OWEN DO, ANA LAURA K 242.90 HYPERTHYROIDISM NOS 07/05/2009 OWEN DO, ANA LAURA K 242.90 HYPERTHYROIDISM NOS 09/23/2009 FELIBERTO VEGA APRN 307.42 PERSISTENT DISORDER OF INITIATING OR MAINTAINING SLEEP 09/23/2009 FELIBERTO VEGA APRN V72.31 BALLOON TESTER EXAM, ROUTINE 09/23/2009 307.42 PERSISTENT DISORDER OF INITIATING OR MAINTAINING SLEEP 09/23/2009 V72.31 BALLOON TESTER EXAM, ROUTINE 09/23/2009 FELIBERTO VEGA APRN 307.42 PERSISTENT DISORDER OF INITIATING OR MAINTAINING SLEEP 09/23/2009 FELIBERTO VEGA APRN V72.31 BALLOON TESTER EXAM, ROUTINE 09/23/2009 307.42 PERSISTENT DISORDER OF INITIATING OR MAINTAINING SLEEP 09/23/2009 V72.31 BALLOON TESTER EXAM, ROUTINE 09/23/2009 307.42 PERSISTENT DISORDER OF INITIATING OR MAINTAINING SLEEP 09/23/2009 V72. BALLOON TESTER EXAM, ROUTINE 09/23/2009 307.42 PERSISTENT DISORDER OF INITIATING OR MAINTAINING SLEEP 09/23/2009 V72.31 BALLOON TESTER EXAM, ROUTINE 09/23/2009 307.42 PERSISTENT DISORDER OF INITIATING OR MAINTAINING SLEEP 09/23/2009 V72.31 BALLOON TESTER EXAM, ROUTINE 09/23/2009 307.42 PERSISTENT DISORDER OF INITIATING OR MAINTAINING SLEEP 09/23/2009 V72.31 BALLOON TESTER EXAM, ROUTINE 09/23/2009 OWEN DOANA LAURA K 307.42 PERSISTENT DISORDER OF INITIATING OR MAINTAINING SLEEP 09/23/2009 OWEN DONKECHIA K V72.31 BALLOON TESTER EXAM, ROUTINE 09/23/2009 ANA LAURA OWEN DO 307.42 PERSISTENT DISORDER OF INITIATING OR MAINTAINING SLEEP 09/23/2009 ANA LAURA OWEN DO V72.31 BALLOON TESTER EXAM, ROUTINE 09/23/2009 VEGA VENDOR ANALYSTFELIBERTO 307.42 PERSISTENT DISORDER OF INITIATING OR MAINTAINING SLEEP 09/23/2009 VEGA VENDOR ANALYST, FELIBERTO Chao V72.31 BALLOON TESTER EXAM, ROUTINE 09/23/2009 ANA LAURA OWEN DO 307.42 PERSISTENT DISORDER OF INITIATING OR MAINTAINING SLEEP 09/23/2009 ANA LAURA OWEN DO V72.31 BALLOON TESTER EXAM, ROUTINE 09/23/2009 VEGA VENDOR ANALYSTFELIBERTO 307.42 PERSISTENT DISORDER OF INITIATING OR MAINTAINING SLEEP 09/23/2009 VEGA VENDOR ANALYST, FELIBERTO Chao V72.31 BALLOON TESTER EXAM, ROUTINE 09/23/2009 VEGA VENDOR ANALYST, FELIBERTO Chao 307.42 PERSISTENT DISORDER OF INITIATING OR MAINTAINING SLEEP 09/23/2009 VEGA VENDOR ANALYSTFELIBERTO V72.31 BALLOON TESTER EXAM, ROUTINE 09/23/2009 ANA LAURA OWEN DO 307.42 PERSISTENT DISORDER OF INITIATING OR MAINTAINING SLEEP 09/23/2009 ANA LAURA OWEN DO V72.31 BALLOON TESTER EXAM, ROUTINE 09/23/2009 ANA LAURA OWEN DO 307.42 PERSISTENT DISORDER OF INITIATING OR MAINTAINING SLEEP 09/23/2009 NKECHI OWEN DOA Taiwo V72.31 BALLOON TESTER EXAM, ROUTINE 09/23/2009 VEGA VENDOR ANALYSTFELIBERTO 307.42 PERSISTENT DISORDER OF INITIATING OR MAINTAINING SLEEP 09/23/2009 VEGA VENDOR ANALYSTFELIBERTO V72.31 BALLOON TESTER EXAM, ROUTINE 09/23/2009 ANA LAURA OWEN DO 307.42 PERSISTENT DISORDER OF INITIATING OR MAINTAINING SLEEP 09/23/2009 ANA LAURA OWEN DO V72.31 BALLOON TESTER EXAM, ROUTINE 09/23/2009 VEGA VENDOR ANALYSTFELIBERTO 307.42 PERSISTENT DISORDER OF INITIATING OR MAINTAINING SLEEP 09/23/2009 VEGA VENDOR ANALYSTFELIBERTO V72.31 BALLOON TESTER EXAM, ROUTINE 09/23/2009 ANA LAURA OWEN DO 307.42 PERSISTENT DISORDER OF INITIATING OR MAINTAINING SLEEP 09/23/2009 OWEN NKECHI MERINOA K V72.31 BALLOON TESTER EXAM, ROUTINE 09/23/2009 OWEN ANA LAURA MERINO K 307.42 PERSISTENT DISORDER OF INITIATING OR MAINTAINING SLEEP 09/23/2009 NKECHI OWEN DOA Taiwo V72.31 BALLOON TESTER EXAM, ROUTINE 11/10/2009 FELIBERTO VEGA APRN 465.9 [...] RESPIRATORY INFECTIONS OF UNSPECIFIED SITE 11/10/2009 LEXIE DONKECHIA K 465.9 ACUTE UPPER RESPIRATORY INFECTIONS OF UNSPECIFIED SITE 11/10/2009 LEXIE MERINO ANA LAURA K 465.9 ACUTE UPPER RESPIRATORY INFECTIONS OF UNSPECIFIED SITE 11/10/2009 VEGA FELIBERTO STEWART 465.9 ACUTE UPPER RESPIRATORY INFECTIONS OF UNSPECIFIED SITE 11/10/2009 NKECHI OWEN DOA K 465.9 ACUTE UPPER RESPIRATORY INFECTIONS OF UNSPECIFIED SITE 11/10/2009 FELIBERTO VEGA APRN 465.9 ACUTE UPPER RESPIRATORY INFECTIONS OF UNSPECIFIED SITE 11/10/2009 VEGA FELIBERTO STEWART 465.9 ACUTE UPPER RESPIRATORY INFECTIONS OF UNSPECIFIED SITE 11/10/2009 OWEN DO ANA LAURA K 465.9 ACUTE UPPER RESPIRATORY INFECTIONS OF UNSPECIFIED SITE 11/10/2009 LEXIE DO ANA LAURA K 465.9 ACUTE UPPER RESPIRATORY INFECTIONS OF UNSPECIFIED SITE 11/10/2009 FELIBERTO VEGA APRN R 465.9 ACUTE UPPER RESPIRATORY INFECTIONS OF UNSPECIFIED SITE 11/10/2009 LEXIE MERINO ANA LAURA K 465.9 ACUTE UPPER RESPIRATORY [...] IN JOINT INVOLVING LOWER LEG 04/07/2010 LEXIE DO ANA LAURA K 386.10 PERIPHERAL VERTIGO UNSPECIFIED 04/07/2010 OWEN DO ANA LAURA K 719.46 PAIN IN JOINT INVOLVING LOWER LEG 04/07/2010 OWEN DO ANA LAURA K 386.10 PERIPHERAL VERTIGO UNSPECIFIED 04/07/2010 ANA LAURA OWEN DO 719.46 PAIN IN JOINT INVOLVING LOWER LEG 04/07/2010 FELIBERTO VEGA APRN 386.10 PERIPHERAL VERTIGO UNSPECIFIED 04/07/2010 FELIBERTO VEGA APRN 719.46 PAIN IN JOINT INVOLVING LOWER LEG 04/07/2010 ANA LAURA OWEN DO K 386.10 PERIPHERAL VERTIGO UNSPECIFIED 04/07/2010 ANA LAURA OWEN DO 719.46 PAIN IN JOINT INVOLVING LOWER LEG 04/07/2010 FELIBERTO VEGA APRN 386.10 PERIPHERAL VERTIGO UNSPECIFIED 04/07/2010 FELIBERTO VEGA APRN 719.46 PAIN IN JOINT INVOLVING LOWER LEG 04/07/2010 NKECHI OWEN DOA K 386.10 PERIPHERAL VERTIGO UNSPECIFIED 04/07/2010 ANA LAURA OWEN DO K 719.46 PAIN IN JOINT INVOLVING LOWER LEG 04/07/2010 ANA LAURA OWEN DO K 386.10 PERIPHERAL VERTIGO UNSPECIFIED 04/07/2010 ANA LAURA OWEN DO 719.46 PAIN IN JOINT INVOLVING LOWER LEG [...] K 847.0 SPRAIN OF NECK 07/18/2010 VEGA VENDOR ANALYST, FELIBERTO R 611.72 LUMP OR MASS IN BREAST 07/18/2010 VEGA VENDOR ANALYST, FELIBERTO R 847.0 SPRAIN OF NECK 07/18/2010 OWEN DO, ANA LAURA K 611.72 LUMP OR MASS IN BREAST 07/18/2010 OWEN DO, ANA LAURA K 847.0 SPRAIN OF NECK 07/18/2010 VEGA VENDOR ANALYST, FELIBERTO R 611.72 LUMP OR MASS IN BREAST 07/18/2010 VEGA VENDOR ANALYST, FELIBERTO R 847.0 SPRAIN OF NECK 07/18/2010 VEGA VENDOR ANALYST, FELIBERTO R 611.72 LUMP OR MASS IN BREAST 07/18/2010 VEGA VENDOR ANALYST, FELIBERTO R 847.0 SPRAIN OF NECK 07/18/2010 OWEN DO, ANA LAURA K 611.72 LUMP OR MASS IN BREAST 07/18/2010 OWEN DO, ANA LAURA K 847.0 SPRAIN OF NECK 07/18/2010 OWEN DO, ANA LAURA K 611.72 LUMP OR MASS IN BREAST 07/18/2010 OWEN DO, ANA LAURA K 847.0 SPRAIN OF NECK 07/18/2010 VEGA VENDOR ANALYST, FELIBERTO R 611.72 LUMP OR MASS IN BREAST 07/18/2010 VEGA VENDOR ANALYST, FELIBERTO R 847.0 SPRAIN OF NECK 07/18/2010 OWEN DO, ANA LAURA K 611.72 LUMP OR MASS IN BREAST 07/18/2010 WOEN DO, ANA LAURA K 847.0 SPRAIN OF NECK 07/18/2010 VEGA VENDOR ANALYST, FELIBERTO R 611.72 LUMP OR MASS IN BREAST 07/18/2010 VEGA VENDOR ANALYST, FELIBERTO R 847.0 SPRAIN OF NECK 07/18/2010 OWEN DO, ANA LAURA K 611.72 LUMP OR MASS IN BREAST 07/18/2010 OWEN DO, ANA LAURA K 847.0 SPRAIN OF NECK 07/18/2010 OWEN DO, ANA LAURA K 611.72 LUMP OR MASS IN BREAST 07/18/2010 OWEN DO, ANA LAURA K 847.0 SPRAIN OF NECK 05/18/2011 FELIBERTO VEGA APRN 272.0 PURE HYPERCHOLESTEROLEMIA 05/18/2011 272.0 PURE HYPERCHOLESTEROLEMIA 05/18/2011 VEGA TERRY, FELIBERTO R 272.0 PURE HYPERCHOLESTEROLEMIA 05/18/2011 272.0 PURE HYPERCHOLESTEROLEMIA 05/18/2011 272.0 PURE HYPERCHOLESTEROLEMIA 05/18/2011 272.0 PURE HYPERCHOLESTEROLEMIA 05/18/2011 272.0 PURE HYPERCHOLESTEROLEMIA 05/18/2011 272.0 PURE HYPERCHOLESTEROLEMIA 05/18/2011 OWEN DO, ANA LAURA K 272.0 PURE HYPERCHOLESTEROLEMIA 05/18/2011 OWEN DO, ANA LAURA K 272.0 PURE HYPERCHOLESTEROLEMIA 05/18/2011 VEGA FELIBERTO STEWART R 272.0 PURE HYPERCHOLESTEROLEMIA 05/18/2011 OWEN DO, ANA LAURA K 272.0 PURE HYPERCHOLESTEROLEMIA 05/18/2011 FELIBERTO VEGA APRN R 272.0 PURE HYPERCHOLESTEROLEMIA 05/18/2011 FELIBERTO VEGA APRN R 272.0 PURE HYPERCHOLESTEROLEMIA 05/18/2011 OWEN DO, ANA LAURA K 272.0 PURE HYPERCHOLESTEROLEMIA 05/18/2011 OWEN DO, ANA LAURA K 272.0 PURE HYPERCHOLESTEROLEMIA 05/18/2011 VEGAADELFO LIGHTLenin FELIBERTO R 272.0 PURE HYPERCHOLESTEROLEMIA 05/18/2011 OWEN DO, ANA LAURA K 272.0 PURE HYPERCHOLESTEROLEMIA 05/18/2011 VEGA FELIBERTO STEWART R 272.0 PURE HYPERCHOLESTEROLEMIA 05/18/2011 OWEN DO, [...] DO 250.00 DIABETES II CONTROLLED (UNCOMPLICATED) 05/23/2011 VEGA FELIBERTO STEWART R 250.00 DIABETES II CONTROLLED (UNCOMPLICATED) 05/23/2011 ANA [...] (3 YRS AND ABOVE, IM) 12/07/2011 SILVIA STEWARTFELIBERTO V04.81 FLU DX (3 YRS AND ABOVE, [...] DX (3 YRS AND ABOVE, IM) 03/26/2012 SILVIA LIGHTFELIBERTO Phelps 780.52 INSOMNIA UNSPECIFIED 03/26/2012 780.52 INSOMNIA UNSPECIFIED 03/26/2012 780.52 INSOMNIA UNSPECIFIED 03/26/2012 780.52 INSOMNIA UNSPECIFIED 03/26/2012 780.52 INSOMNIA UNSPECIFIED 03/26/2012 780.52 INSOMNIA UNSPECIFIED 03/26/2012 NKECHI OWEN DOA K 780.52 INSOMNIA UNSPECIFIED 03/26/2012 ANA LAURA OWEN DO K 780.52 INSOMNIA UNSPECIFIED 03/26/2012 SILVIA LIGHTFELIBERTO Phelps 780.52 INSOMNIA UNSPECIFIED 03/26/2012 LEXIE MERINO ANA LAURA K 780.52 INSOMNIA UNSPECIFIED 03/26/2012 VEGA FELIBERTO STEWART 780.52 INSOMNIA UNSPECIFIED 03/26/2012 LEXIE MERINO ANA LAURA K 780.52 INSOMNIA UNSPECIFIED 03/26/2012 LEXIE MERINO ANA LAURA K 780.52 INSOMNIA UNSPECIFIED 03/26/2012 VEGA FELIBERTO STEWART 780.52 INSOMNIA UNSPECIFIED 03/26/2012 LEXIE MERINO ANA LAURA K 780.52 INSOMNIA UNSPECIFIED 03/26/2012 SILVIA LIGHTFELIBERTO Phelps 780.52 INSOMNIA UNSPECIFIED 03/26/2012 WOEN DO, ANA LAURA K 780.52 INSOMNIA UNSPECIFIED 03/26/2012 OWEN DO, ANA LAURA K 780.52 INSOMNIA UNSPECIFIED 09/26/2012 724.3 SCIATICA 09/26/2012 724.3 SCIATICA 09/26/2012 724.3 SCIATICA 09/26/2012 OWEN DO, ANA LAURA K 724.3 SCIATICA 09/26/2012 OWEN DO, ANA LAURA K 724.3 SCIATICA 09/26/2012 VEGA TERRY, FELIBERTO R 724.3 SCIATICA 09/26/2012 OWEN DO, ANA LAURA K 724.3 SCIATICA 09/26/2012 VEGA VENDOR ANALYST, FELIBERTO R 724.3 SCIATICA 09/26/2012 OWEN DO, ANA LAURA K 724.3 SCIATICA 09/26/2012 OWEN DO, ANA LAURA K 724.3 SCIATICA 09/26/2012 VEGA VENDOR ANALYST, FELIBERTO R 724.3 SCIATICA 09/26/2012 OWEN DO, ANA LAURA K 724.3 SCIATICA 09/26/2012 VEGA TERRY, FELIBERTO R 724.3 SCIATICA 09/26/2012 OWEN DO, ANA LAURA K 724.3 SCIATICA 09/26/2012 OWEN DO, ANA LAURA K 724.3 SCIATICA 03/18/2018 JACKELYN SALAZAR DO Ot E11.9 TYPE 2 DIABETES MELLITUS WITHOUT COMPLIC 03/18/2018 JACKELYN SALAZAR DO Ot E78.00 PURE HYPERCHOLESTEROLEMIA, UNSPECIFIED 03/18/2018 JACKELYN SALAZAR DO Ot F32.9 MAJOR DEPRESSIVE DISORDER, SINGLE EPISOD 03/18/2018 JACKELYN SALAZAR DO Ot F41.9 ANXIETY DISORDER, UNSPECIFIED 03/18/2018 JACKELYN SALAZAR DO Ot I10 ESSENTIAL (PRIMARY) HYPERTENSION 03/18/2018 JACKELYN SALAZAR DO Ot K76.0 FATTY (CHANGE OF) LIVER, NOT ELSEWHERE C 03/18/2018 JACKELYN SALAZAR DO Ot K81.0 ACUTE CHOLECYSTITIS 03/18/2018 JACKELYN SALAZAR DO Ot K85.90 ACUTE PANCREATITIS WITHOUT NECROSIS OR I 03/18/2018 JACKELYN SALAZAR DO Ot E11.9 TYPE 2 DIABETES MELLITUS WITHOUT COMPLIC 03/18/2018 JACKELYN SALAZAR DO Ot E78.00 PURE HYPERCHOLESTEROLEMIA, UNSPECIFIED 03/18/2018 MARTIN MERINO JACKELYN D Ot F32.9 MAJOR DEPRESSIVE DISORDER, SINGLE EPISOD 03/18/2018 SALAZAR DO, JACKELYN D Ot F41.9 ANXIETY DISORDER, UNSPECIFIED 03/18/2018 SALAZAR DO, JACKELYN D Ot I10 ESSENTIAL (PRIMARY) HYPERTENSION 03/18/2018 SALAZAR DONANDOTT D Ot K76.0 FATTY (CHANGE OF) LIVER, NOT ELSEWHERE C 03/18/2018 SALAZAR DONANDOTT D Ot K81.0 ACUTE CHOLECYSTITIS 03/18/2018 SALAZAR DO, JACKELYN D Ot K85.90 ACUTE PANCREATITIS WITHOUT NECROSIS OR I 03/19/2018 SALAZAR DO, JACKELYN D Ot E11.9 TYPE 2 DIABETES MELLITUS WITHOUT COMPLIC 03/19/2018 SALAZAR DONANDOTT D Ot E78.00 PURE HYPERCHOLESTEROLEMIA, UNSPECIFIED 03/19/2018 SALAZAR DO, JACKELYN Castro Ot F32.9 MAJOR DEPRESSIVE DISORDER, SINGLE EPISOD 03/19/2018 SALAZAR DONANDOTT Matthew Ot F41.9 ANXIETY DISORDER, UNSPECIFIED 03/19/2018 SALAZAR DONANDOTT D Ot I10 ESSENTIAL (PRIMARY) HYPERTENSION 03/19/2018 SALAZAR DONANDOTT D Ot K76.0 FATTY (CHANGE OF) LIVER, NOT ELSEWHERE C 03/19/2018 SALAZAR DONANDOTT D Ot K81.0 ACUTE CHOLECYSTITIS 03/19/2018 SALAZAR DOJACKELYN Ot K85.90 ACUTE PANCREATITIS WITHOUT NECROSIS OR I 03/19/2018 SALAZAR DONANDOTT Matthew Ot E11.9 TYPE 2 DIABETES MELLITUS WITHOUT COMPLIC 03/19/2018 MARTIN DONANDOTT D Ot E78.00 PURE HYPERCHOLESTEROLEMIA, UNSPECIFIED 03/19/2018 SALAZAR DONANDOTT D Ot F32.9 MAJOR DEPRESSIVE DISORDER, SINGLE EPISOD 03/19/2018 SALAZAR DO, JACKELYN D Ot F41.9 ANXIETY DISORDER, UNSPECIFIED 03/19/2018 SALAZAR DO JACKELYN D Ot I10 ESSENTIAL (PRIMARY) HYPERTENSION 03/19/2018 SALAZAR DO JACKELYN D Ot K76.0 FATTY (CHANGE OF) LIVER, NOT ELSEWHERE C 03/19/2018 SALAZAR DO, JACKELYN D Ot K81.0 ACUTE CHOLECYSTITIS 03/19/2018 SALAZAR DO, JACKELYN D Ot K85.90 ACUTE PANCREATITIS WITHOUT NECROSIS OR I 03/19/2018 SALAZAR DO, JACKELYN D Ot E11.9 TYPE 2 DIABETES MELLITUS WITHOUT COMPLIC 03/19/2018 SALAZAR DO, JACKELYN D Ot E78.00 PURE HYPERCHOLESTEROLEMIA, UNSPECIFIED 03/19/2018 SALAZAR DONANDOTT D Ot F32.9 MAJOR DEPRESSIVE DISORDER, SINGLE EPISOD 03/19/2018 SALAZAR DO, JACKELYN D Ot F41.9 ANXIETY DISORDER, UNSPECIFIED 03/19/2018 SALAZAR DO JACKELYN D Ot I10 ESSENTIAL (PRIMARY) HYPERTENSION 03/19/2018 SALAZAR DOJACKELYN D Ot K76.0 FATTY (CHANGE OF) LIVER, NOT ELSEWHERE C 03/19/2018 SALAZAR DO, JACKELYN D Ot K81.0 ACUTE CHOLECYSTITIS 03/19/2018 SALAZAR DOJACKELYN D Ot K85.90 ACUTE PANCREATITIS WITHOUT NECROSIS OR I 03/19/2018 SALAZAR DOJACKELYN Ot E11.9 TYPE 2 DIABETES MELLITUS WITHOUT COMPLIC 03/19/2018 SALAZAR DOJACKELYN Ot E78.00 PURE HYPERCHOLESTEROLEMIA, UNSPECIFIED 03/19/2018 SALAZAR DOJACKELYN Ot F32.9 MAJOR DEPRESSIVE DISORDER, SINGLE EPISOD 03/19/2018 SALAZAR DOJACKELYN Ot F41.9 ANXIETY DISORDER, UNSPECIFIED 03/19/2018 SALAZAR DONANDOTT Matthew Ot I10 ESSENTIAL (PRIMARY) HYPERTENSION 03/19/2018 SALAZAR DOJACKELYN Ot K76.0 FATTY (CHANGE OF) LIVER, NOT ELSEWHERE C 03/19/2018 SALAZAR DOJCAKELYN D Ot K81.0 ACUTE CHOLECYSTITIS 03/19/2018 SALAZAR DOJACKELYN Ot K85.90 ACUTE PANCREATITIS WITHOUT NECROSIS OR I 03/20/2018 SALAZAR DOJACKELYN Ot E11.9 TYPE 2 DIABETES MELLITUS WITHOUT COMPLIC 03/20/2018 SALAZAR DOJACKELYN D Ot E78.00 PURE HYPERCHOLESTEROLEMIA, UNSPECIFIED 03/20/2018 SALAZAR DONANDOTT D Ot E78.2 MIXED HYPERLIPIDEMIA 03/20/2018 SALAZAR DOJACKELYN D Ot F32.9 MAJOR DEPRESSIVE DISORDER, SINGLE EPISOD 03/20/2018 SALAZAR DONANDOTT D Ot F41.9 ANXIETY DISORDER, UNSPECIFIED 03/20/2018 SALAZAR DONANDOTT D Ot I10 ESSENTIAL (PRIMARY) HYPERTENSION 03/20/2018 SALAZAR DO, JACKEYLN D Ot K76.0 FATTY (CHANGE OF) LIVER, NOT ELSEWHERE C 03/20/2018 JACKELYN SALAZAR DO Ot K81.0 ACUTE CHOLECYSTITIS 03/20/2018 JACKELYN SALAZAR DO Ot K82.8 OTHER SPECIFIED DISEASES OF GALLBLADDER 03/20/2018 JACKELYN SALAZAR DO Ot K85.30 DRUG INDUCED ACUTE PANCREATITIS WITHOUT 03/20/2018 JACKELYN SALAZAR DO Ot K85.90 ACUTE PANCREATITIS WITHOUT NECROSIS OR I 03/20/2018 JACKELYN SALAZAR DO Ot T38.3X5A ADVERSE EFFECT OF INSULIN AND ORAL HYPOG 03/20/2018 JACKELYN SALAZAR DO Ot Z79.84 SEMICONDUCTOR WAFER INSPECTOR (CURRENT) USE OF ORAL HYPOGLYC Procedures Code Description [place] [address] A1C (IN-HOUSE) 12/07/2011 22469 A1C (IN-HOUSE) 06/23/2012 J1100 DEXAMETHASONE SODIUM PHOS, 1 MG 09/26/2012 J1885 TORADOL INJ 09/26/2012 55482 A1C (IN-HOUSE) 10/29/2012 78201 MICRO ALBUMIN-IN HOUSE 10/29/2012 G0008 FLU ADMINISTRATION ( MEDICARE ONLY) 10/29/2012 15691 A1C (IN-HOUSE) 03/04/2013 29650 ROUTINE VENIPUNCTURE 08/10/2013 33773 MICRO ALBUMIN-IN HOUSE 08/10/2013 54309 CBC 08/10/2013 [id number] GFR CALC (RESULT ONLY) 08/10/2013 92963 CMP 08/10/2013 04110 LIPID PANEL 08/10/2013 76766 A1C (IN-HOUSE) 08/13/2013 10446 A1C (IN-HOUSE) 11/19/2013 41673 A1C (IN-HOUSE) 02/23/2014 Results Test Result Range Capillary blood glucose measurement by glucometer (mass/volume) - 03/17/18 00: 40 Capillary blood glucose measurement by glucometer (mass/volume) 119 mg/dL 70-110 Capillary blood glucose measurement by glucometer (mass/volume) - 03/17/18 05: 05 Capillary blood glucose measurement by glucometer (mass/volume) 135 mg/dL 70-110 Complete blood count (CBC) with automated white blood cell (WBC) differential - 03/17/18 05:36 Blood leukocytes automated count (number/volume) 6.3 10*3/uL 4.3-11.0 Blood erythrocytes automated count (number/volume) 3.50 10*6/uL 4.35-5.85 Venous blood hemoglobin measurement (mass/volume) 10.4 g/dL 11.5-16.0 Blood hematocrit (volume fraction) 31 % 35-52 Automated erythrocyte mean corpuscular volume 87 [foz_us] 80-99 Automated erythrocyte mean corpuscular hemoglobin (mass per erythrocyte) 30 pg 25-34 Automated erythrocyte mean corpuscular hemoglobin concentration measurement ( mass/volume) 34 g/dL 32-36 Automated erythrocyte distribution width ratio 12.0 % 10.0-14.5 Automated blood platelet count (count/volume) 287 10*3/uL 130-400 Automated blood platelet mean volume measurement 11.6 [foz_us] 7.4-10.4 Automated blood neutrophils/100 leukocytes 51 % 42-75 Automated blood lymphocytes/100 leukocytes 36 % 12-44 Blood monocytes/100 leukocytes 12 % 0-12 Automated blood eosinophils/100 leukocytes 1 % 0-10 Automated blood basophils/100 leukocytes 0 % 0-10 Blood neutrophils automated count (number/volume) 3.2 10*3 1.8-7.8 Blood lymphocytes automated count (number/volume) 2.3 10*3 1.0-4.0 Blood monocytes automated count (number/volume) 0.7 10*3 0.0-1.0 Automated eosinophil count 0.1 10*3/uL 0.0-0.3 Automated blood basophil count (count/volume) 0.0 10*3/uL 0.0-0.1 Comprehensive metabolic panel - 03/17/18 05:36 Serum or plasma sodium measurement (moles/volume) 137 mmol/L 135-145 Serum or plasma potassium measurement (moles/volume) 3.3 mmol/L 3.6-5.0 Serum or plasma chloride measurement (moles/volume) 104 mmol/L 98-107 Carbon dioxide 23 mmol/L 21-32 Serum or plasma anion gap determination (moles/volume) 10 mmol/L 5-14 Serum or plasma urea nitrogen measurement (mass/volume) 12 mg/dL 7-18 Serum or plasma creatinine measurement (mass/volume) 0.73 mg/dL 0.60-1.30 Serum or plasma urea nitrogen/creatinine mass ratio 16 NRG Serum or plasma creatinine measurement with calculation of estimated glomerular filtration rate > NRG Serum or plasma glucose measurement (mass/volume) 136 mg/dL 70-105 Serum or plasma calcium measurement (mass/volume) 8.4 mg/dL 8.5-10.1 Serum or plasma total bilirubin measurement (mass/volume) 0.4 mg/dL 0.1-1.0 Serum or plasma alkaline phosphatase measurement (enzymatic activity/volume) 120 U/L 40-136 Serum or plasma aspartate aminotransferase measurement (enzymatic activity/ volume) 55 U/L 5-34 Serum or plasma alanine aminotransferase measurement (enzymatic activity/volume ) 39 U/L 0-55 Serum or plasma protein measurement (mass/volume) 5.9 g/dL 6.4-8.2 Serum or plasma albumin measurement (mass/volume) 3.2 g/dL 3.2-4.5 CALCIUM CORRECTED 9.0 mg/dL 8.5-10.1 Serum or plasma amylase measurement (enzymatic activity/volume) - 03/17/18 05: 36 Serum or plasma amylase measurement (enzymatic activity/volume) 193 U/L 25-125 Lipase - 03/17/18 05:36 Lipase 485 U/L 8-78 Capillary blood glucose measurement by glucometer (mass/volume) - 03/17/18 13: 17 Capillary blood glucose measurement by glucometer (mass/volume) 124 mg/dL 70-110 Capillary blood glucose measurement by glucometer (mass/volume) - 03/18/18 05: 32 Capillary blood glucose measurement by glucometer (mass/volume) 127 mg/dL 70-110 Automated blood complete blood count (hemogram) panel - 03/18/18 06:15 Blood leukocytes automated count (number/volume) 6.9 10*3/uL 4.3-11.0 Blood erythrocytes automated count (number/volume) 3.24 10*6/uL 4.35-5.85 Venous blood hemoglobin measurement (mass/volume) 9.9 g/dL 11.5-16.0 Blood hematocrit (volume fraction) 28 % 35-52 Automated erythrocyte mean corpuscular volume 87 [foz_us] 80-99 Automated erythrocyte mean corpuscular hemoglobin (mass per erythrocyte) 31 pg 25-34 Automated erythrocyte mean corpuscular hemoglobin concentration measurement ( mass/volume) 35 g/dL 32-36 Automated erythrocyte distribution width ratio 12.1 % 10.0-14.5 Automated blood platelet count (count/volume) 263 10*3/uL 130-400 Automated blood platelet mean volume measurement 11.4 [foz_us] 7.4-10.4 Comprehensive metabolic panel - 03/18/18 06:15 Serum or plasma sodium measurement (moles/volume) 138 mmol/L 135-145 Serum or plasma potassium measurement (moles/volume) 3.3 mmol/L 3.6-5.0 Serum or plasma chloride measurement (moles/volume) 108 mmol/L 98-107 Carbon dioxide 18 mmol/L 21-32 Serum or plasma anion gap determination (moles/volume) 12 mmol/L 5-14 Serum or plasma urea nitrogen measurement (mass/volume) 12 mg/dL 7-18 Serum or plasma creatinine measurement (mass/volume) 0.68 mg/dL 0.60-1.30 Serum or plasma urea nitrogen/creatinine mass ratio 18 NRG Serum or plasma creatinine measurement with calculation of estimated glomerular filtration rate > NRG Serum or plasma glucose measurement (mass/volume) 126 mg/dL 70-105 Serum or plasma calcium measurement (mass/volume) 8.2 mg/dL 8.5-10.1 Serum or plasma total bilirubin measurement (mass/volume) 0.4 mg/dL 0.1-1.0 Serum or plasma alkaline phosphatase measurement (enzymatic activity/volume) 109 U/L 40-136 Serum or plasma aspartate aminotransferase measurement (enzymatic activity/ volume) 48 U/L 5-34 Serum or plasma alanine aminotransferase measurement (enzymatic activity/volume ) 37 U/L 0-55 Serum or plasma protein measurement (mass/volume) 5.9 g/dL 6.4-8.2 Serum or plasma albumin measurement (mass/volume) 3.2 g/dL 3.2-4.5 CALCIUM CORRECTED 8.8 mg/dL 8.5-10.1 Serum or plasma triglyceride measurement (mass/volume) - 03/18/18 06:15 Serum or plasma triglyceride measurement (mass/volume) 213 mg/dL <150 Serum or plasma cholesterol measurement (mass/volume) - 03/18/18 06:15 Serum or plasma cholesterol measurement (mass/volume) 209 mg/dL < 200 Serum or plasma amylase measurement (enzymatic activity/volume) - 03/18/18 06: 15 Serum or plasma amylase measurement (enzymatic activity/volume) 139 U/L 25-125 Lipase - 03/18/18 06:15 Lipase 381 U/L 8-78 Capillary blood glucose measurement by glucometer (mass/volume) - 03/18/18 12: 31 Capillary blood glucose measurement by glucometer (mass/volume) 274 mg/dL 70-110 Capillary blood glucose measurement by glucometer (mass/volume) - 03/18/18 18: 09 Capillary blood glucose measurement by glucometer (mass/volume) 240 mg/dL 70-110 Capillary blood glucose measurement by glucometer (mass/volume) - 03/19/18 02: 23 Capillary blood glucose measurement by glucometer (mass/volume) 131 mg/dL 70-110 Complete blood count (CBC) with automated white blood cell (WBC) differential - 03/19/18 05:35 Blood leukocytes automated count (number/volume) 7.4 10*3/uL 4.3-11.0 Blood erythrocytes automated count (number/volume) 3.38 10*6/uL 4.35-5.85 Venous blood hemoglobin measurement (mass/volume) 10.2 g/dL 11.5-16.0 Blood hematocrit (volume fraction) 29 % 35-52 Automated erythrocyte mean corpuscular volume 87 [foz_us] 80-99 Automated erythrocyte mean corpuscular hemoglobin (mass per erythrocyte) 30 pg 25-34 Automated erythrocyte mean corpuscular hemoglobin concentration measurement ( mass/volume) 35 g/dL 32-36 Automated erythrocyte distribution width ratio 12.3 % 10.0-14.5 Automated blood platelet count (count/volume) 265 10*3/uL 130-400 Automated blood platelet mean volume measurement 11.6 [foz_us] 7.4-10.4 Automated blood neutrophils/100 leukocytes 70 % 42-75 Automated blood lymphocytes/100 leukocytes 20 % 12-44 Blood monocytes/100 leukocytes 7 % 0-12 Automated blood eosinophils/100 leukocytes 2 % 0-10 Automated blood basophils/100 leukocytes 0 % 0-10 Blood neutrophils automated count (number/volume) 5.2 10*3 1.8-7.8 Blood lymphocytes automated count (number/volume) 1.5 10*3 1.0-4.0 Blood monocytes automated count (number/volume) 0.5 10*3 0.0-1.0 Automated eosinophil count 0.2 10*3/uL 0.0-0.3 Automated blood basophil count (count/volume) 0.0 10*3/uL 0.0-0.1 Comprehensive metabolic panel - 03/19/18 05:35 Serum or plasma sodium measurement (moles/volume) 140 mmol/L 135-145 Serum or plasma potassium measurement (moles/volume) 3.1 mmol/L 3.6-5.0 Serum or plasma chloride measurement (moles/volume) 111 mmol/L 98-107 Carbon dioxide 21 mmol/L 21-32 Serum or plasma anion gap determination (moles/volume) 8 mmol/L 5-14 Serum or plasma urea nitrogen measurement (mass/volume) 7 mg/dL 7-18 Serum or plasma creatinine measurement (mass/volume) 0.71 mg/dL 0.60-1.30 Serum or plasma urea nitrogen/creatinine mass ratio 10 NRG Serum or plasma creatinine measurement with calculation of estimated glomerular filtration rate > NRG Serum or plasma glucose measurement (mass/volume) 130 mg/dL 70-105 Serum or plasma calcium measurement (mass/volume) 8.2 mg/dL 8.5-10.1 Serum or plasma total bilirubin measurement (mass/volume) 0.4 mg/dL 0.1-1.0 Serum or plasma alkaline phosphatase measurement (enzymatic activity/volume) 101 U/L 40-136 Serum or plasma aspartate aminotransferase measurement (enzymatic activity/ volume) 41 U/L 5-34 Serum or plasma alanine aminotransferase measurement (enzymatic activity/volume ) 33 U/L 0-55 Serum or plasma protein measurement (mass/volume) 5.8 g/dL 6.4-8.2 Serum or plasma albumin measurement (mass/volume) 3.2 g/dL 3.2-4.5 CALCIUM CORRECTED 8.8 mg/dL 8.5-10.1 Serum or plasma amylase measurement (enzymatic activity/volume) - 03/19/18 05: 35 Serum or plasma amylase measurement (enzymatic activity/volume) 59 U /L 25-125 Lipase - 03/19/18 05:35 Lipase 131 U/L 8-78 Capillary blood glucose measurement by glucometer (mass/volume) - 03/19/18 06: 23 Capillary blood glucose measurement by glucometer (mass/volume) 137 mg/dL 70-110 Capillary blood glucose measurement by glucometer (mass/volume) - 03/19/18 12: 26 Capillary blood glucose measurement by glucometer (mass/volume) 132 mg/dL 70-110 Capillary blood glucose measurement by glucometer (mass/volume) - 03/19/18 18: 58 Capillary blood glucose measurement by glucometer (mass/volume) 205 mg/dL 70-110 Capillary blood glucose measurement by glucometer (mass/volume) - 03/19/18 23: 54 Capillary blood glucose measurement by glucometer (mass/volume) 177 mg/dL 70-110 Capillary blood glucose measurement by glucometer (mass/volume) - 03/20/18 05: 47 Capillary blood glucose measurement by glucometer (mass/volume) 154 mg/dL 70-110 Encounters ACCT No. Visit Date/Time Discharge Status Pt. Type Provider Facility Loc./Unit Complaint [id number] 03/23/2014 09:23:00 03/23/2014 23:59:59 CLS Outpatient OWEN DOANA LAURA [id number] 02/23/2014 11:24:00 02/23/2014 23:59:59 CLS Outpatient ANA LAURA OWEN DO [id number] 11/19/2013 08:28:00 11/19/2013 23:59:59 CLS Outpatient FELIBERTO VEGA APRN [id number] 11/19/2013 08:28:00 11/19/2013 23:59:59 CLS Outpatient OWEN DOANA LAURA [id number] 08/13/2013 08:29:00 08/13/2013 23:59:59 CLS Outpatient ANA LAURA OWEN DO [id number] 08/13/2013 08:29:00 08/13/2013 23:59:59 CLS Outpatient FELIBERTO VEGA APRN [id number] 08/10/2013 08:41:00 08/10/2013 23:59:59 CLS Outpatient LEXIE DOANA LAURA [id number] 03/04/2013 14:43:00 03/04/2013 23:59:59 CLS Outpatient OWEN DOANA LAURA [id number] 03/04/2013 14:43:00 03/04/2013 23:59:59 LEANDRO Outpatient FELIBERTO VEGA APRN [id number] 12/29/2012 10:54:00 12/29/2012 23:59:59 LEANDRO Outpatient FELIBERTO VEGA APRN [id number] 11/27/2012 14:23:00 11/27/2012 23:59:59 CLS Outpatient ANA LAURA OWEN DO [id number] 10/29/2012 09:42:00 10/29/2012 23:59:59 CLS Outpatient ANA LAURA OWEN DO [id number] 03/26/2012 08:54:00 03/26/2012 23:59:59 CLS Outpatient VEGAFELIBERTO EMANUEL APRN [id number] 03/12/2012 08:19:00 03/12/2012 23:59:59 CLS Outpatient [id number] 12/07/2011 08:24:00 12/07/2011 23:59:59 CLS Outpatient FELIBERTO VEGA APRN [id number] 12/07/2011 08:24:00 12/07/2011 23:59:59 CLS Outpatient VEGAFELIBERTO EMANUEL APRN [id number] 09/30/2012 14:05:00 Document Registration [id number] 09/26/2012 08:54:00 Document Registration [id number] 09/26/2012 08:54:00 Document Registration [id number] 07/25/2012 08:50:00 Document Registration [id number] 06/23/2012 10:14:00 Document Registration [id number] 03/21/2018 05:36:00 03/21/2018 11:04:00 DIS Outpatient JACKELYN SALAZAR DO [facility] PREOP PANCREATITIS [id number] 03/16/2018 20:14:00 03/20/2018 14:34:00 DIS Outpatient JACKELYN SALAZAR DO [facility] 4TH PANCREATITIS [id number] 03/24/2018 11:20:00 PEN [facility]read[facility]
[2018-03-24 10:15] VITALS: BP 175/92
[2018-03-24] MEDS: LACTATED RINGERS 1,000 ML IV PRN ×2 (10:15→13:07)
[2018-03-24] MEDS ORDERED: ceFAZolin 2 GM IV Premixed 50 ML IV ONE (10:15)
[2018-03-24] MEDS ORDERED: CATHETER FLUSH 10 ML SYR IV PRN (10:30)
[2018-03-24] MEDS ORDERED: BUP/EPI 0.5% 1:200,000 (SENSORCAINE) 30 ML VIAL ONE (10:40)
[2018-03-24] MEDS ORDERED: LIDOCAINE 1% INJ 20 ML 20 ML VIAL ONE (10:41)
[2018-03-24] MEDS ORDERED: fentaNYL INJECTION 100 MCG/2 ML AMP ONE ×2 (11:06→11:54)
[2018-03-24] MEDS ORDERED: LIDOCAINE PF 2% 5 ML (XYLOCAINE) VIAL ONE (11:06)
[2018-03-24] MEDS ORDERED: ONDANSETRON 4 MG/2 ML (SDV) Z0FRAN ONE (11:06)
[2018-03-24] MEDS ORDERED: ROCURONIUM 10 MG/ML 5 ML SYRINGE IV ONE (11:06)
[2018-03-24] MEDS ORDERED: DEXAMETHASONE 10 MG/ML (DECADRON) 1 ML VIAL ONE (11:06)
[2018-03-24] MEDS ORDERED: SEVOFLURANE (ULTANE) 15 ML INHAL SOLN ONE (11:06)
[2018-03-24] MEDS ORDERED: proPOfol 200 MG/20 ML (DIPRIVAN) VIAL IV ONE (11:06)
[2018-03-24] MEDS ORDERED: MIDAZOLAM 2 MG/2 ML (VERSED) VIAL ONE (11:06)
--- NOTE | 2018-03-24 11:18 | Progress Note-Pre Operative ---
Pre-Operative Progress Note H&P Reviewed The H&P was reviewed, patient examined and no changes noted. Date Seen by Provider: Mar 24, 2018 Time Seen by Provider: 11:18 Date H&P Reviewed: Mar 24, 2018 Time H&P Reviewed: 11:18 Pre-Operative Diagnosis: biliary dyskinesia JACKELYN SALAZAR DO Mar 24, 2018 11:18
[2018-03-24] MEDS ORDERED: NEOSTIGMINE 1 MG/ML 5 ML SYRINGE ONE (11:26)
[2018-03-24] MEDS ORDERED: GLYCOPYRROLATE 0.2 MG/ML (ROBINUL) 2 ML VIAL ONE (11:26)
[2018-03-24] MEDS ORDERED: LABETALOL HCL 20 MG/4 ML VIAL ONE (11:59)
[2018-03-24] MEDS ORDERED: KETOROLAC 30 MG/ML VIAL ONE (12:23)
--- NOTE | 2018-03-24 12:28 | Progress Note-Post Operative ---
Post-Operative Progess Note Surgeon (s)/Court Officer (s) Surgeon JACKELYN SALAZAR DO Court Officer: Dr. Soria Pre-Operative Diagnosis biliary dyskinesia Post-Operative Diagnosis same Procedure & Operative Findings Date of Procedure 03/24/18 Procedure Performed/Findings lap martell c ioc Anesthesia Type gen Estimated Blood Loss Estimated blood loss (mL): min Specimens/Packing Specimens Removed gallbladder JACKELYN SALAZAR DO Mar 24, 2018 12:28
[2018-03-24] MEDS ORDERED: ACHD5005 PO (12:29)
[2018-03-24] MEDS ORDERED: IOPAMIDOL 61% 30 ML (ISOVUE 300) VIAL IV ONE (12:30)
--- NOTE | 2018-03-24 12:30 | Discharge Inst-Simple/Standard ---
Discharge Inst-Standard Discharge Medications New, Converted or Re-Newed RX: RX on Chart Patient Instructions/Follow Up Plan of Care/Instructions/FU: 2 weeks Reyes Activity as Tolerated: No Discharge Diet: Regular Diet Other Inst to Patient Follow up Appt: Make appointment for 2 weeks. Instructions: No lifting greater than 10 pounds. No strenuous activity. May shower in 24 hours, no tub bath or soaking. Use incentive spirometer at home as directed. No Smoking Skin/Wound Care: You have special glue over incisions it will fall off on its own. Symptoms to Report: Appetite Changes, Extremity Discoloration, Numbness/Tingling, Swelling Increased , Bleeding Excessive, Eyesight Changes, Pain Increased, Urine Color Change, Constipation(Persistent), Fever over 101 degree F, Pain/Pressure in chest, Urinating Difficulty, Cough Up/Vomit Blood, Heart Beat Irreg/Pounding, Pain/ Pressure in jaw, Vaginal Bleeding Increase, Cramps in feet or legs, Lightheadedness, Pain/Pressure in shoulder, Diarrhea(Persistent), Memory Changes Suddenly, Questions/Concerns, Weight gain consecutive days, Dizziness/ Fainting, Nausea/Vomiting, Shortness of Breath, Weight gain over 2 pounds. If eyes or skin turn yellow notify physician. If questions or concerns contact your physician Or seek help at emergency department. JACKELYN SALAZAR DO Mar 24, 2018 12:30
[2018-03-24] MEDS ORDERED: HYDROmorphone 2 MG/ML VIAL (DILAUDID) IV ONE (13:00)
[2018-03-24] MEDS ORDERED: ONDANSETRON 4 MG/2 ML (SDV) Z0FRAN IVP PRN (13:00)
--- NOTE | 2018-03-24 13:04 | Diagnostic Imaging Report ---
INDICATION: Fluoroscopy during intraoperative cholangiogram. FINDINGS: Fluoroscopy was provided for Dr. Chambers during intraoperative cholangiogram. 9 seconds of fluoroscopy was utilized. Images demonstrate contrast being injected via the cystic duct remnant. Contrast is seen within nondilated intrahepatic and extrahepatic bile ducts. No filling defects are seen to suggest retained stones. There is contrast flowing into the duodenum. IMPRESSION: Fluoroscopy during intraoperative cholangiogram. Dictated by: Dictated on workstation # [id number]
[2018-03-24 13:44] VITALS: BP 123/69
--- NOTE | 2018-03-24 14:03 | Anesthesia-General Post-Op ---
General Patient Condition Mental Status/LOC: Same as Preop Cardiovascular: Satisfactory Nausea/Vomiting: Absent Respiratory: Satisfactory Pain: Controlled Complications: Absent Post Op Complications Complications None Follow Up Care/Instructions Patient Instructions None needed. Anesthesia/Patient Condition Patient Condition Patient is doing well, no complaints, stable vital signs, no apparent adverse anesthesia problems. No complications reported per nursing. DYLON CASTILLO CRNA Mar 24, 2018 14:03
[2018-03-24 14:14] VITALS: BP 136/68
[2018-03-24 14:44] VITALS: BP 138/65
[2018-03-24 14:45] VITALS: BP 138/65
--- NOTE | 2018-03-25 04:31 | OPERATIVE REPORT ---
DATE OF SERVICE: 03/24/2018 PREOPERATIVE DIAGNOSIS: Biliary dyskinesia. POSTOPERATIVE DIAGNOSIS: Biliary dyskinesia. PROCEDURE: Laparoscopic cholecystectomy with intraoperative cholangiogram. SURGEON: Cristo Chambers DO JEWELRY MOLD MAKER: Dr. Soria, assisted in retraction, dissection and closure. ESTIMATED BLOOD LOSS: Minimal. COMPLICATIONS: None. INDICATIONS: The patient is a 67-year-old female who was admitted with epigastric abdominal pain and found to have pancreatitis. This was calmed down, she was then was placed on antibiotics. The patient had a CT scan, which demonstrated some thickening of the gallbladder wall, but ultrasound, the next day had a completely normal appearance. The patient had a HIDA scan for further evaluation, which demonstrated an ejection fraction of 87%. The patient was discussed risks and benefits of procedure and wished to proceed with procedure. Consent was signed and on the chart. DESCRIPTION OF PROCEDURE: The patient was taken to the operating suite. She was prepped and draped in sterile fashion. Surgical pause was performed. A midline incision just above the umbilicus was made. Cautery was used to dissect down the fascia, which was then scored, grasped and elevated and the abdomen was entered. An 0 Vicryl was placed in a [id number] fashion for closure at the end of the case on the fascia. A balloon trocar was inserted into the abdomen and pneumoperitoneum was achieved. Under direct visualization of the laparoscope, a 5 mm trocar was placed in the subxiphoid region and two 5 mm trocars were placed in the right upper quadrant. Gallbladder was grasped and elevated. The cystic duct was then dissected out along with the cystic artery. Clips were placed on the proximal and distal portions of the cystic artery and the distal portion of the cystic duct. The duct was then partially transected. Arrow catheter was inserted into the duct. A clip was used to hold it in place and cholangiogram was performed. There were no filling defects. Contrast made its way into the duodenum without difficulty. The catheter was removed. Clips were placed on the proximal portion of the cystic duct and then the duct and artery were then completely transected. Hook cautery was used to dissect the gallbladder from the gallbladder fossa achieving hemostasis. Posterior artery is present and another clip was placed to clamp it in order to control any bleeding. Hook cautery was continued to be used to dissect the gallbladder from the gallbladder fossa achieving hemostasis. Once removed, it was placed in an Endobag and removed through the 12 mm trocar site. Abdomen was then irrigated and suctioned. Hemostasis was achieved. There were some adhesions from the umbilicus down to the abdominal wall. No other pathology noted. The abdomen was then desufflated. Trocars were removed. The fascia defect with 0 Vicryl was placed earlier was then tied. The skin was then closed using 4-0 Monocryl in subcuticular fashion. The abdomen was then washed and dried and Skin Affix was placed over the incisions. The patient tolerated procedure well without any complications. She was taken to recovery room in stable condition. Job ID: [id number] DocumentID: [id number] Dictated Date: 03/24/2018 17:28:46 Automatic Lathe Operator Date: 03/25/2018 04:31:11 Dictated By: DO LILLIAN DIETRICH
== END 2018-03-24 14:45 | disposition home or self-care (01) ==
LOC: SDC 09:58
PROVIDERS: ATTEND Surgery
DX: K81.1 Chronic cholecystitis (principal); K82.8 Other specified diseases of gallbladder; Z11.2 Encounter for screening for other bacterial diseases; I10 Essential (primary) hypertension; E78.5 Hyperlipidemia, unspecified; E78.00 Pure hypercholesterolemia, unspecified; F32.9 Major depressive disorder, single episode, unspecified; F41.9 Anxiety disorder, unspecified; E11.9 Type 2 diabetes mellitus without complications; Z88.5 Allergy status to narcotic agent; Z79.899 Other long term (current) drug therapy
CPT/HCPCS: 82962; 87081